=== PATIENT | female | born 1940 | race Caucasian/White ===

== ENCOUNTER 2019-11-12 09:53 | Outpatient (CLI) | payer MEDICARE, OTHER, SELFPAY ==
--- NOTE | ~2019-11-12 | XR_ITS ---
EXAMINATION: XR chest 2V DATE: 11/12/2019 11:21 INDICATION: Hypertension. Preop. TECHNIQUE: Frontal and lateral views of the chest were obtained. COMPARISON: Chest 2 views 03/06/2015 FINDINGS: A calcified left lung nodule is consistent with old granulomatous disease. No pneumonia, pl eural effusion, or pneumothorax. The heart size is normal. IMPRESSION: 1. No acute cardiopulmonary disease. Reviewed, dictated and finalized at location A. P MATERIALS BUYER
--- NOTE | 2019-11-12 10:49 | ECG_ITS ---
Measurements Intervals [place] Rate: 75 P: 44 ND: 196 QRS: -11 QRSD: 85 T: 21 QT: 369 QTc: 412 Interpretive Statements SINUS RHYTHM LOW QRS VOLTAGE IN PRECORDIAL LEADS BORDERLINE T WAVE ABNORMALITY- ANTERIOR LEADS BASELINE ARTIFACT- II, III, AVF BORDERLINE ECG Electronically Signed On 11-12-2019 13:49:30 RESIDENTIAL ASSISTANT by Abiodun Tim D.O.
[2019-11-12 11:15] LABS: Basophils Percent Auto 0.4 % (0.2-1.2); Eosinophils Absolute Auto 0.2 K/mm3 (0-0.3); Eosinophils Percent Auto 3.5 % (0-4.4); Hematocrit 42.5 % (37.0-47.0); Hemoglobin 13.5 g/dL (12.0-15.0); Immature Granulocyte Absolute 0.02 K/mm3 (0.00-0.031); Immature Granulocyte Percent A 0.3 % (0-0.5); Lymphocytes Absolute Auto 1.63 K/mm3 (0.9-3.2); Lymphocytes Percent Auto 23.9 % (18.3-44.2); Mean Corpuscular HGB Conc 31.8 g/dl (32-36); Mean Corpuscular Volume 94.4 fl (80-100); Mean Platelet Volume 9.6 fl (7.4-10.4); Monocytes Absolute Auto 0.6 K/mm3 (0.1-0.6); Monocytes Percent Auto 8.8 % (2.6-8.5); Neutrophils Absolute Auto 4.3 K/mm3 (1.3-6.7); Neutrophils Percent Auto 63.1 % (45.5-73.1); Platelet Count Result 270 k/mm3 (150-375); Red Cell Distribution Width 13.7 % (11.5-14.5); White Blood Count 6.8 K/mm3 (4.5-10.0)
[2019-11-12 11:28] LABS: Albumin Level 4.2 g/dL (3.5-5.1); Blood Urea Nitrogen 28 mg/dL (7-17); Calcium 9.8 mg/dL (8.4-10.2); Carbon Dioxide 30 mmol/L (22-30); Chloride 98 mmol/L (98-107); Estimated Glomerular Filt Rate 48; Glucose 100 mg/dL (65-105); Potassium 4.7 mmol/L (3.4-5.0); Sodium 142 mmol/L (137-145)
[2019-11-12 11:31] LABS: Hemoglobin A1C 6.4 % (<5.7)
[2019-11-12 11:32] LABS: Urine Cotinine NEGATIVE
== END 2019-11-12 09:54 | disposition home or self-care (01) ==
LOC: ANHSURGERY 09:56
PROVIDERS: PCP Family Medicine; Visit Provider Orthopaedic Surgery
DX: Z01.818 Encounter for other preprocedural examination (principal); M17.10 Unilateral primary osteoarthritis, unspecified knee; I10 Essential (primary) hypertension; E78.5 Hyperlipidemia, unspecified; E74.39 Other disorders of intestinal carbohydrate absorption
CPT/HCPCS: 36415; 71046; 80048; 80307; 82040; 83036; 85025; 87070; 87147; 87186; 93005

== ENCOUNTER 2019-11-22 08:24 | Outpatient (CLI) | payer MEDICARE, OTHER, SELFPAY ==
--- NOTE | ~2019-11-22 | NM_ITS ---
EXAMINATION: NM taras stress w perfusion DATE: 11/22/2019 12:14 INDICATION: Dyspnea on exertion. TECHNIQUE: Rest images were obtained following intravenous administration of 11 mCi Tc99m tetrofosmin (Myoview). The patient was infused intravenously with Lexiscan (regadenoson). Then, 33 mCi Tc99m tet rofosmin (Myoview) was administered intravenously, and stress images were obtained. Data was reconstr ucted into short axis and horizontal and vertical long axis SPECT images. Gated SPECT images were als o obtained. COMPARISON: None. FINDINGS: There is a small, mild, fixed perfusion defect involving mid inferior segment of left ventr icle, consistent with infarct. No reversible component to suggest ischemia. There is no segmental wa ll motion abnormality. Left ventricular ejection fraction measures >70%. IMPRESSION: 1. 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 2. Normal left ventricular ejection fraction measuring >70%. Reviewed, dictated and finalized at location A. AVER JEWELRY
--- NOTE | 2019-11-22 08:35 | ECHO_ITS ---
Patient Info Name: Temitope Pitts Age: 79 years : 1940 Gender: Female Ht: 69 in Wt: 244 lbs BSA: 2.36 m2 HR: 84 bpm BP: 154 / 84 mmHg Heart Rhythm: Sinus Rhythm Technical Quality: Fair Exam Date: 11/22/2019 8:52 AM Exam Location: [facility] Pulmonary Patient Status: Outpatient Admit Date: 11/22/2019 Staff Ordering Physician: Abiodun Tim DO Felt Hanger: Rosales Donaldson RDCS Attending Provider: Abiodun Tim DO Referring Physician: Glenroy CABRAL; Exam Type: CA echo doppler color flow Study Info Indications R06.09 - Other forms of dyspnea Complete two-dimensional, color flow and Doppler transthoracic echocardiogram is performed. History/Risk Factors Dyspnea, pre-op clearance. Summary 1. Left ventricular chamber dimension is normal. 2. Left ventricular systolic function is normal, estimated at 60-65%. 3. There is mildly increased left ventricular wall thickness. 4. The left ventricular diastolic function is grade I diastolic dysfunction. 5. E/e' 10 is mildly elevated. 6. Left atrial chamber dimension is mildly enlarged. 7. There is mild aortic valve sclerosis. Left Ventricle E/e' 10 is mildly elevated. Left ventricular chamber dimension is normal. Left ventricular systolic function is normal, estimated at 60-65%. There is mildly increased left ventricular wall thickness. The left ventricular diastolic function is grade I diastolic dysfunction. Right Ventricle Right ventricular chamber dimension is normal. Right ventricular systolic function is normal. Left Atria Left atrial chamber dimension is mildly enlarged. Right Atria Right atrial chamber dimension is normal. Aortic Valve Cannot determine number of aortic valve leaflets. The aortic valve is not well visualized. There is mild aortic valve sclerosis. There is no aortic valve stenosis. There is no aortic valve regurgitation. Pulmonic Valve There is no pulmonic regurgitation. Mitral Valve There is no mitral valve stenosis. There is no mitral valve regurgitation. Tricuspid Valve There is no tricuspid valve regurgitation. Pericardium/Pleural There is no pericardial effusion. Inferior Vena Cava Normal inferior vena cava with >50% collapse upon inspiration consistent with normal right atrial pressure, 5 mmHg. Aorta The aortic root size at the sinus of Valsalva is normal. Left Ventricular Outflow Tract Name Value Normal LVOT 2D LVOT Diameter 1.8 cm LVOT Doppler LVOT Peak Gradient 4 mmHg LVOT Mean Gradient 2 mmHg LVOT VTI 21 cm LVOT VTI/AV VTI Ratio 0.8 LVOT Stroke Volume 54 ml LVOT CO 3.8 l/min LVOT CI 1.6 l/min/m2 Mitral Valve Name Value Normal MV Doppler
--- NOTE | 2019-11-22 08:35 | EST_ITS ---
Patient Info Name: Temitope Pitts Age: 79 years : 1940 Gender: Female Ht: 69 in Wt: 244 lbs BSA: 2.36 m2 Exam Date: 11/22/2019 10:46 AM Exam Location: [facility] Stress Patient Status: Outpatient Admit Date: 11/22/2019 Staff Ordering Physician: Abiodun Tim DO Attending Provider: Abiodun Tim DO Exercise Technologist: Jenny Phillips RDCS Exercise Physician: Abiodun Tim DO Exam Type: CA stress taras w NM Study Info Indications R06.09 - Other forms of dyspnea A regadenoson stress test was performed. Summary 1. 1. Negative Lexiscan stress test for ischemic ST changes by ECG criteria. 2. 2. Hypotensive response to lexiscan. 3. 3. Nuclear scan to follow and will be reported separately. Please correlate with it. 4. 4. Patient informed of the above results. Protocol: Lexiscan Stress ECG Details Stage: REST Duration (min): 7 min : 34 sec HR (bpm): 69 SBP (mmHg): 123 DBP (mmHg): 57 Stage: REST Duration (min): 15 min : 9 sec HR (bpm): 66 SBP (mmHg): 123 DBP (mmHg): 57 Stage: STAGE 1 Duration (min): 0 min : 59 sec HR (bpm): 74 SBP (mmHg): 128 DBP (mmHg): 57 Stage: RECOVERY Duration (min): 1 min : 0 sec HR (bpm): 84 SBP (mmHg): 128 DBP (mmHg): 57 Stage: RECOVERY Duration (min): 2 min : 0 sec HR (bpm): 83 SBP (mmHg): 89 DBP (mmHg): 36 Stage: RECOVERY Duration (min): 3 min : 0 sec HR (bpm): 82 SBP (mmHg): 84 DBP (mmHg): 36 Stage: RECOVERY Duration (min): 4 min : 0 sec HR (bpm): 83 SBP (mmHg): 84 DBP (mmHg): 36 Stage: RECOVERY Duration (min): 5 min : 0 sec HR (bpm): 82 SBP (mmHg): 84 DBP (mmHg): 36 Stage: RECOVERY Duration (min): 6 min : 0 sec HR (bpm): 82 SBP (mmHg): 96 DBP (mmHg): 41 Stage: RECOVERY Duration (min): 6 min : 47 sec HR (bpm): 80 SBP (mmHg): 106 DBP (mmHg): 46 Rest HR: 66 bpm Peak HR: 84 bpm Rest Sys BP: 123 mmHg Peak Sys BP: 128 mmHg Max Pred HR: 139 bpm % Max Pred HR: 60 % Target HR: 118 bpm Max RPP: 10,752 bpm*mmHg BP Response: Patient exhibited a hypotensive response with stress Termination Reason: Completed protocol Cardiac Symptoms: Shortness of breath, Headache, dizziness Total Time: 1 min : 0 sec Rest Guerra BP: 57 mmHg Peak Guerra BP: 57 mmHg Total Dose: 0.4 mg Resting ECG Sinus rhythm. Stress ECG No ST changes. BP vikki to 85/40 mmHg with Lexiscan. Arrhythmias None. Report Signatures
== END 2019-11-22 08:25 | disposition home or self-care (01) ==
PROVIDERS: PCP Family Medicine; Visit Provider Internal Medicine Cardiovascular Disease
DX: R06.09 Other forms of dyspnea (principal); I21.9 Acute myocardial infarction, unspecified
CPT/HCPCS: 78452; 93017; 93306; A9502; J2785

== ENCOUNTER 2019-12-03 00:45 | Day surgery (SDC) | payer MEDICARE, OTHER, SELFPAY ==
[2019-11-12 10:43] VITALS: BMI 35.0
[2019-11-12 11:53] VITALS: BP 117/63; PULSE 83; RESP 18; TEMP 36.6; O2SAT 94
--- NOTE | 2019-11-30 11:06 | HP_ITS ---
DATE OF SERVICE: 12/03/2019 ADMIT DIAGNOSIS: Degenerative joint disease, left knee. HISTORY: The patient is an 79-year-old female patient of Dr. Brown who presents today for left total knee arthroplasty. She has been having pain in both of her knees, left greater than right for several years. She has had viscosupplementation injections as well as cortisone injections in the past, all with minimal help. She has severe arthritis in both of her knees and feels at this point she would rather proceed with total knee arthroplasty rather than continue any nonsurgical treatment. 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 She has had tubal ligation in the past. CURRENT MEDICATIONS: Takes 1. Alprazolam 0.5 mg once a day. 2. Full-strength aspirin daily. 3. Vitamin D daily. 4. Omeprazole 20 mg daily. 5. Paxil 20 mg daily. 6. Rosuvastatin 10 mg daily. 7. Trimeton. 8. Hydrochlorothiazide 37.5/25 daily. ALLERGIES: SHE IS ALLERGIC TO SULFA DRUGS, PARTICULARLY SULFONAMIDE ANTIBIOTICS. SOCIAL HISTORY: She is a nonsmoker. FAMILY HISTORY: Noncontributory. PHYSICAL EXAMINATION: VITAL SIGNS: The patient is 5 feet 8 inches and 249 pounds. Her BMI is 37. Other vital signs per nursing on the morning of surgery. HEENT: Grossly normal. LUNGS: Clear bilaterally. HEART: Regular rate and rhythm. She walks with a mild limp. There is some mild swelling in the left calf and ankle. Left knee range of motion is from 8 to 120. There is no effusion. Normal stability, both AP, medial, and lateral. Moderately severe tenderness over the medial joint line. Has numbness in both feet to light touch testing with a history of neuropathy in both feet. SKIN: Skin is all otherwise normal. 2+ dorsalis pedis and posterior tibial pulse. Full range of motion of the left hip without discomfort. IMAGING DATA: X-rays demonstrate severe medial compartment arthritis. She has chondrocalcinosis in the lateral compartment, which is fairly prominent. She has [id number] varus deformity in the knee as well. IMPRESSION: The patient has severe arthritis of the medial compartment with significant pain in the left knee. She would like to proceed with total knee arthroplasty. Surgical procedure as well as the risks and complications were discussed. All questions were answered and we will proceed. The patient will see Dr. Brown for presurgical clearance. She will maintain her baby aspirin through the time of surgery due to her history of the ocular stroke. The patient has seen Dr. Tim, the rn pain management. She has had a stress test, which showed her ejection fraction at greater than 70%. She has a small fixed defect in the mid inferior segment of the left ventricle consistent with an old infarct. Her nasal swab did grow oxacillin-sensitive Staph aureus. She has been decolonizing as of 11/23, hemoglobin 13.5, platelets are 270. Creatinine is elevated to 1.10. GFR is 48. Rest of her Chem panel is within normal limits. D I MT: Padma
[2019-12-03] VITALS (12 sets, daily range): BP systolic 113–143; BP diastolic 54–81; PULSE 84–106; RESP 12–19; TEMP 36.5–37; O2SAT 93–99
--- NOTE | ~2019-12-03 | XR_ITS ---
EXAMINATION: XR knee LT 2V DATE: 12/03/2019 11:20 INDICATION: Left knee arthroplasty. Postop. TECHNIQUE: 2 views of left knee were obtained. COMPARISON: None. FINDINGS: There is a total left knee arthroplasty with patellar resurfacing in near-anatomic alignmen t. No fracture. There is gas in the knee joint and soft tissues, consistent with recent surgery. IMPRESSION: 1. Total left knee arthroplasty in near-anatomic alignment. Reviewed, dictated and finalized at location A. /HOSTESS HEAD
--- NOTE | 2019-12-03 06:45 | WPDANESEPPF ---
Anes - Initial Pre Proc Eval Procedure: Operation Date: 12/03/19 07:30 Proposed Procedures p Left Total Knee Arthroplasty - Kenny Wilkes MD Date/Time: 12/03/19 06:45 Surgeon: Kenny Wilkes MD Pre Op Diagnosis: OA Left Knee Patient Data Age: 79 Gender: F Height: 1.78 m Weight: 110.4 kg Last Vital Signs Temp 36.6 C 11/12/19 11:53 Pulse 83 11/12/19 11:53 Resp 18 11/12/19 11:53 BP 117/63 11/12/19 11:53 Pulse Ox 94 11/12/19 11:53 Allergies Allergy/AdvReac Type Severity Reaction Status Date / Time atorvastatin Allergy Unknown muscle Verified 12/03/19 06:42 aches fenofibrate Allergy Unknown muscle Verified 12/03/19 06:42 aches fluvastatin Allergy Unknown muscle Verified 12/03/19 06:42 aches niacin Allergy Unknown flushing Verified 12/03/19 06:42 simvastatin Allergy Unknown muscle Verified 12/03/19 06:42 aches Sulfa (Sulfonamide Allergy Unknown Skin Verified 12/03/19 06:42 Antibiotics) Reaction Home Medications Medication Instructions Recorded Confirmed Type alprazolam [Xanax] 0.5 mg PO HS PRN 11/12/19 11/14/19 History aspirin 325 mg PO DAILY 11/12/19 11/14/19 History biotin [Ronaldo Biotin] 10,000 mcg PO 11/12/19 11/14/19 History cholecalciferol (vitamin D3) 2,000 unit PO DAILY 11/12/19 11/14/19 History coQ10 (ubiquinol) 200 mg PO DAILY 11/12/19 11/14/19 History cyanocobalamin (vitamin B-12) 1,000 mcg PO DAILY 11/12/19 11/14/19 History levothyroxine 125 mcg PO DAILY 11/12/19 11/14/19 History multivitamin [Multiple Vitamins] 1 tablet PO DAILY 11/12/19 11/14/19 History omeprazole 20 mg PO DAILY 11/12/19 11/14/19 History paroxetine HCl 20 mg PO QAM 11/12/19 11/14/19 History polyethylene glycol 3350 17 g PO DAILY 11/12/19 11/14/19 History rosuvastatin 10 mg PO DAILY 11/12/19 11/14/19 History triamterene-hydrochlorothiazid 0.5 tablet PO QAM 11/12/19 11/14/19 History [Maxzide-25mg] ECG: Date of Service: 11/12/19 Procedure(s): CA 12 lead EKG Accession Number(s): [id number] cc: ~ Measurements Intervals [place] Rate: 75 P: 44 SD: 196 QRS: -11 QRSD: 85 T: 21 QT: 369 QTc: 412 Interpretive Statements SINUS RHYTHM LOW QRS VOLTAGE IN PRECORDIAL LEADS BORDERLINE T WAVE ABNORMALITY- ANTERIOR LEADS BASELINE ARTIFACT- II, III, AVF BORDERLINE ECG Electronically Signed On 11-12-2019 13:49:30 COMPUTER TRAINER by Abiodun Tim D.O. Dictated By: Abiodun Tim DO 11/12/19 1120 Patient hx anesthesia problems: none Family hx anesthesia problems: none PMFSH Past Medical History Medical History (Updated 12/03/19 @ 06:47 by Livan Abbott MD) Arthritis Glucose intolerance Hyperlipidemia Hypertension Obesity JADIEL on CPAP Thyroid disease Surgical History Surgical History History of surgery on wrist History of tubal ligation Social History Social History Smoking status: Former smoker Smoking end date: 10/03/99 Alcohol intake: current Gender identity (if verbalized by the patient): Female Anes - Eval Final PreProcedure Day of Procedure 12/03/19 06:45 Patient weight: obese Heart: regular rate and rhythm Lungs: clear to auscultation and normal air movement Airway: Mallampati scale class II Neurological: alert and oriented Last oral intake: >/= 8 hours ASA classification: III Emergent: no Anesthetic plan: proceed Anesthesia type and monitoring: general LMA Informed Consent: The patient's anesthetic plan and its attendant risks and benefits were discussed with the patient/family/POA. Questions were solicited and answers provided to the satisfaction of the
[2019-12-03] MEDS: LACTATED RINGERS 1,000 ML 30 ML IV CONT ×2 (06:55→11:18)
[2019-12-03] MEDS: IBUPROFEN IV 800 MG/200 ML 800 MG/200 ML BAG 400 MG IVPB (07:02)
--- NOTE | 2019-12-03 07:25 | WPDHPUPDATE1 ---
History and Physical Update Update Date/Time: 12/03/19 07:25 History and Physical has been reviewed, including an updated exam of the patient. There are NO changes in the patient's condition. Risks, benefits, and alternatives have been discussed and questions answered. Patient agrees to proceed with procedure.
[2019-12-03] MEDS: ceFAZolin 2 GM/D5W 50 ML 2 GM/50 ML BAG IVPB (07:36)
[2019-12-03] MEDS: ceFAZolin SODIUM 1 GM VIAL 3 GM IRRIGATION (08:26)
--- NOTE | 2019-12-03 09:36 | SUR.OPER ---
bone cement used: 1 box refobacin bone cement 1x40, and 1biomet 1x40 box
--- NOTE | 2019-12-03 09:42 | SUR.OPER ---
informed dr. ESCOBEDO OF 90 MINUTE TOURNIQUET TIME
--- NOTE | 2019-12-03 09:53 | SUR.OPER ---
INFORMED DR. ESCOBEDO OF 100 MINUTE TOURNIQUET TIME
[2019-12-03] MEDS: ceFAZolin SODIUM 1 GM VIAL IV PUSH ×2 (10:23→10:38)
--- NOTE | 2019-12-03 10:51 | SUR.OPER ---
EBL:200CC
--- NOTE | 2019-12-03 11:02 | PM.PROC ---
Procedure Note - Detailed Date of procedure: 12/03/19 Pre-op diagnosis: OA Left Knee Osteoarthritis left knee, obesity Post-op diagnosis: same Procedure performed: Left total knee arthroplasty Description of procedure: Patient was brought to the operating room and general anesthesia was administered. the left knee was prepped draped usual fashion. She received 2 g of Ancef weight based vancomycin preoperatively and 1 g of tranexamic acid. There was extra difficulty with the procedure because of her BMI of 37.8. She is 5 foot 8-1/2 inches in height 111 kg. Limb was exsanguinated and tourniquet elevated to 300 mm of mercury. She had about a 7-10 flexion degree contracture under anesthesia. a 8 inch longitudinal incision was made. Vastus medialis splitting approach utilized. Infrapatellar and suprapatellar fat pads were excised a course of synovectomy carried out. The patella measured 24 mm in thickness and was cut to 16 mm. Protector cap applied. A guide eric was inserted down the femoral canal after aspiration canal contents using the 5? valgus cutting bushing 11 mm of bone removed the distal femur. This removed equal amounts medially and laterally. next the tibial plateau was cut. We attempted to make a skim cut but we were still little bit too tight in flexion and an additional 2 mm of bone removed the tibial plateau. Meniscal remnants were excised and the PCL recessed the flexion gaps measured I 10 mm medially and 11 mm laterally. Whitesides line trans epicondylar axis were drawn on the femur. The sizing guide was set to 3? of external rotation which matched Whitesides line and the trans epicondylar axis. posterior referencing pin holes were placed and the femur was cut to a size 70 vanguard. This caused the minimal notching of the lateral ridge of the anterior femoral cortex but was a little bit too wide still. The tibia was sized to an 75 placed at the proper rotation referenced off the medial 3rd of the tibial tubercle the foot in the anterior cortex of the tibial plateau and this was punched and we trialed with the 10 insert. this demonstrated excessive tightness laterally at 90? with no applied and 3 mm of gapping medially. I did not feel this would be acceptable. The knee came out to full extension easily at this point with 2 mm medial and lateral opening we had good balance there. As the cut femur size was still a bit wide for her I elected to slide the 67.5 cutting block femur removing the lateral fixation peg to allow the femoral component to be applied with a little bit less external rotation such that it would remove 2 mm of bone from the posterior aspect of the lateral femoral condyle be flush with the posterior aspect of the medial femoral condyle and removed 2 mm of bone from the medial aspect of the anterior femoral cut be flush with the lateral aspect of the anterior femoral cut and the and the cutting block was additionally pinned with the threaded pins and the femur cut again and the 67.5 fit line to line medial collateral on and we had an excellent fit anterior to posterior as well. we trialed with the 12 mm insert and found that that we were just a little bit loose at 90? of flexion with excellent medial lateral balance now. Lateral side opened the mm medial side 2 mm. The lacked wire 2? of full extent did have a bit of plate medial-lateral. I will I trialed the 13 insert which had excellent stability at 90? gravity flexion to 125 an lacked extension with no plate medially or laterally now. We removed the trial components reapplied the femoral component posterior femoral osteophyte removed. the pins for the distal femoral cutting block were reinserted and we removed an additional 1 mm of bone from the distal femur and the chamfer cuts revisited and on trialing again with a 13 insert the knee came out to full extension with a negative bounce 1 mm medial to mm lateral opening in full extension and appropriate stability at 90?. The patella w
--- NOTE | 2019-12-03 11:10 | SUR.OPER ---
URINE IN [place] RESERVOIR:200CC
[2019-12-03] MEDS: SODIUM CHLORIDE 0.9% IV 1,000 ML 125 ML IV CONT (13:11)
--- NOTE | 2019-12-03 13:20 | PC.NURSE ---
This patient, Temitope Pitts, was admitted to 3 [facility] Surg Room 329-01. Patient/family oriented to hospital policies and general routines including ID bracelet, bed and alarms, visiting hours, pain management, procedures, bathroom and other care routines, personal items, smoking policy, room service/diet, and visiting hours. Valuables list has been completed. Information on how to activate the Rapid Response Team has been discussed. Patient/Family are encouraged to report perceived risks to care and to ask questions if they do not understand what they are told or what they should do.
[2019-12-03] MEDS: ACETAMINOPHEN 500 MG TABLET 1000 MG PO ×2 (13:44→21:04)
[2019-12-03] MEDS: SENNA/DOCUSATE SODIUM TABLET 2 TAB PO (17:45)
--- NOTE | 2019-12-03 18:13 | PM.IMCN ---
Assessment and Plan Assessment and plan (1) History of total knee arthroplasty: Code(s): Z96.659 - Presence of unspecified artificial knee joint Status: Acute Assessment and Plan: Postop care per orthopedic physician. DVT prophylaxis per ortho. The patient is on Eliquis she has SCDs and TEDs on right and an Geo wrap on the left leg. Pain management per Ortho as well. (2) Anxiety: Code(s): F41.9 - Anxiety disorder, unspecified Status: Chronic Assessment and Plan: Xanax was continued. Continue with Paxil (3) Hypertension: Code(s): I10 - Essential (primary) hypertension Status: Chronic Assessment and Plan: Ortho continued with her triamterene. Please continue to monitor her renal function. Patient does seem somewhat dry today. (4) Glucose intolerance: Code(s): E74.39 - Other disorders of intestinal carbohydrate absorption Status: Acute (5) JADIEL on CPAP: Code(s): G47.33 - Obstructive sleep apnea (adult) (pediatric); Z99.89 - Dependence on other enabling machines and devices Status: Acute Assessment and Plan: I ordered a a titrating CPAP. (6) Hyperlipidemia: Code(s): E78.5 - Hyperlipidemia, unspecified Status: Acute Assessment and Plan: Continue with Crestor. (7) Hypothyroidism: Code(s): E03.9 - Hypothyroidism, unspecified Status: Chronic Assessment and Plan: Check thyroid level continue with levothyroxine. HPI Data of Consult Consult date: 12/03/19 Requesting Physician: Kenny Wilkes MD Primary Care Provider: Dejan Brown MD Consult Narrative Narrative: Temitope Pitts is a 79 year old female patient has had severe arthritis to both of her knees. She has had some gel injection to the left knee in the past. She has had difficulty ambulating. He has had severe pain she has dealt with this for several years. The patient stated that she did have a stress test prior to having surgery and that she passed although they thought there might of been something there she was able to go through with the surgery at this point. She is not having a of any other problems at this time. Patient is somewhat lethargic from the anesthesia at this point. The patient that she had to urinate for got she had a Meng catheter in. The patient has already been up and ambulated with walker and sat in the chair. She just feels very fatigued. No nausea vomiting. Dr. wilkes has consulted the hospitalist group for medical management. Patient is not having any complaints at this time. Please refer to the operative report and anesthesia report. Review of Systems Review of Systems: Narrative: The patient is still somewhat groggy from anesthesia. All systems reviewed & are unremarkable except as noted in HPI and below Constitutional: Constitutional: Reports as per HPI and Reports no additional constitutional complaints Eyes: Eyes: Reports as per HPI and Reports no additional eye complaints ENT: Reports system reviewed and no additional complaints, except as documented and Reports Normal hearing present Cardiovascular: Cardiovascular: Reports no additional cardiovascular complaints Respiratory: Respiratory: Reports no additional respiratory complaints and Reports no additional respiratory complaints Gastrointestinal: Gastrointestinal: Reports as per HPI and Reports no additional gastrointestinal complaints Musculoskeletal: Musculoskeletal: Reports no additional musculoskeletal complaints Integumentary/Breasts: Skin/Breast: Reports system reviewed and no additional complaints, except as docu and Reports as per HPI Neurologic: Reports system reviewed and no additional complaints, except as documented, Reports as per HPI and Reports Normal hearing present Psychiatric: Psychiatric: Reports no additional psychiatric complaints and Reports as per HPI Endocrine: Endocrine: Reports no additional endocrine complaints Elijah
[2019-12-03] MEDS: FAMOTIDINE 20 MG TABLET PO (21:04)
[2019-12-03] MEDS: APIXABAN 2.5 MG TABLET PO (21:04)
[2019-12-04] VITALS (9 sets, daily range): BP systolic 103–121; BP diastolic 45–60; PULSE 79–100; RESP 16–18; TEMP 36.7–37.1; O2SAT 93–96
[2019-12-04] MEDS: SODIUM CHLORIDE 0.9% IV 1,000 ML 125 ML IV CONT (00:19)
[2019-12-04] MEDS: ALPRAZOLAM 0.5 MG TABLET PO (00:40)
[2019-12-04] MEDS: ACETAMINOPHEN 500 MG TABLET 1000 MG PO ×3 (03:07→13:50)
[2019-12-04] MEDS: LEVOTHYROXINE SODIUM 125 MCG TABLET PO (05:09)
[2019-12-04 06:05] LABS: Basophils Percent Auto 0.1 % (0.2-1.2); Eosinophils Percent Auto 0.1 % (0-4.4); Hemoglobin 11.6 g/dL (12.0-15.0); Immature Granulocyte Absolute 0.06 K/mm3 (0.00-0.031); Immature Granulocyte Percent A 0.6 % (0-0.5); Lymphocytes Absolute Auto 1.09 K/mm3 (0.9-3.2); Lymphocytes Percent Auto 10.4 % (18.3-44.2); Mean Corpuscular HGB Conc 31.4 g/dl (32-36); Mean Corpuscular Hemoglobin 29.7 pg (26-34); Mean Corpuscular Volume 94.9 fl (80-100); Mean Platelet Volume 9.5 fl (7.4-10.4); Monocytes Absolute Auto 1.1 K/mm3 (0.1-0.6); Monocytes Percent Auto 10.1 % (2.6-8.5); Neutrophils Absolute Auto 8.3 K/mm3 (1.3-6.7); Neutrophils Percent Auto 78.7 % (45.5-73.1); Platelet Count Result 256 k/mm3 (150-375); Red Cell Distribution Width 13.8 % (11.5-14.5); White Blood Count 10.5 K/mm3 (4.5-10.0)
--- NOTE | 2019-12-04 06:28 | PM.PNORT ---
Progress Note: A&P Additional Plan POD 1 alert avss pt was having headache last night none this am. no nausea overnight, wd-dry NVI, pt has been OOB last night,plan to have PT work with pt today and plan to send home this afternoon Subjective Subjective Date/Time Seen: 12/04/19 06:28 Objective Data Vital Signs Vital Signs: Vital Signs - 24 hr 12/03/19 07:24 12/03/19 11:18 12/03/19 11:30 Temperature 36.6 C 36.8 C Pulse Rate 84 94 92 Respiratory Rate 16 13 18 Blood Pressure 143/65 H 119/69 113/55 L Pulse Oximetry 95 95 99 12/03/19 11:45 12/03/19 12:00 12/03/19 12:15 Temperature Pulse Rate 91 88 92 Respiratory Rate 12 12 16 Blood Pressure 132/54 L 120/55 L 133/66 Pulse Oximetry 93 94 95 12/03/19 12:30 12/03/19 12:45 12/03/19 13:15 Temperature 36.6 C 36.6 C 36.5 C Pulse Rate 91 92 96 Respiratory Rate 16 16 19 Blood Pressure 140/64 114/81 122/58 L Pulse Oximetry 94 96 95 12/03/19 14:15 12/03/19 22:00 12/03/19 23:30 Temperature 37.0 C 36.5 C Pulse Rate 106 H 89 92 Respiratory Rate 18 16 Blood Pressure 124/65 117/57 L Pulse Oximetry 93 94 94 12/04/19 02:00 12/04/19 04:18 12/04/19 05:58 Temperature 37.0 C 37.1 C Pulse Rate 91 89 87 Respiratory Rate 16 18 Blood Pressure 121/60 111/45 L Pulse Oximetry 94 93 95 Intake/Output Intake/Output: Intake & Output 12/01/19 12/02/19 12/03/19 12/04/19 23:59 23:59 23:59 23:59 Intake Total 1999 1050 Output Total 450 2700 Balance 1550 -1650 Meds/Results Medications: Active Medications Generic Name Dose Route Start Last Admin Trade Name Freq PRN Reason Stop Dose Admin Acetaminophen 1,000 mg 12/03/19 14:00 12/04/19 03:07 Tylenol Tablet PO 1,000 mg Q6H GERMAINE Administration Alprazolam 0.5 mg 12/03/19 12:21 12/04/19 00:40 Xanax PO 0.5 mg HS PRN Administration Insomnia Apixaban 2.5 mg 12/03/19 21:00 12/03/19 21:04 Eliquis PO 12/15/19 09:01 2.5 mg Q12HR GERMAINE Administration Aspirin 81 mg 12/04/19 08:00 Aspirin Chewable PO DAILY@0800 [facility] Cephalexin HCl 500 mg 12/04/19 13:00 Keflex Capsule PO QID GERMAINE Diphenhydramine HCl 25 mg 12/03/19 12:21 Benadryl Inj IV PUSH Q6H PRN Itching Famotidine 20 mg 12/03/19 21:00 12/03/19 21:04 Pepcid PO 20 mg Q12HR GERMAINE Administration Sodium Chloride 1,000 mls @ 125 mls/hr 12/03/19 12:21 12/04/19 00:19 Normal Saline Iv IV CONT 125 mls/hr .Q8H GERMAINE Administration Vancomycin HCl 1,000 mg in 250 mls @ 250 mls/hr 12/03/19 19:00 12/04/19 06:10 Vancomycin 1,000 Mg/D5w 250 Ml IVPB 12/04/19 07:59 125 mls/hr Q12H GERMAINE Administration Cefazolin Sodium 1 gm in 50 mls @ 100 mls/hr 12/03/19 16:00 12/04/19 01:05 Ancef 1 Gm/D5w 50 Ml Pm IVPB 12/04/19 08:29 Infused Q8H GERMAINE Infusion Levothyroxine Sodium 125 mcg 12/04/19 06:30 12/04/19 05:09 Synthroid PO 125 mcg DAILY@0630 GERMAINE Administration Morphine Sulfate 2 mg 12/03/19 12:21 Morphine Sulfate Inj IV PUSH Q2H PRN Breakthrough pain rated 4-6 Naloxone HCl 0.1 mg 12/03/19 12:21 Narcan IV PUSH Q2M PRN Opiate Reversal Ondansetron HCl 4 mg 12/03/19 12:21 Zofran Inj IV PUSH Q4H PRN Nausea And Vomiting Oxycodone HCl 5 mg 12/03/19 12:21 Roxicodone Ir Tablet PO Q4H PRN Pain Rated 4-6 Oxycodone HCl 5 mg 12/03/19 13:00 12/04/19 05:08 Roxicodone Ir Tablet PO 5 mg Q4HR GERMAINE Administration Paroxetine HCl 20 mg 12/04/19 09:00 Paxil PO QAM [facility] Polyethylene Glycol 17 gm 12/04/19 09:00 Miralax PO DAILY [facility] Rosuvastatin Calcium 10 mg 12/04/19 09:00 Crestor PO DAILY GERMAINE Senna/Docusate Sodium 2 tab 12/03/19 17:00 12/03/19 17:45 Senokot S Tablet PO 2 tab BID GERMAINE Administration Triamterene/HCTZ 1 tab 12/04/19 09:00 Maxzide-25 1/2 Tab PO QAM [facility] Radiology Results: ITS Impressions Knee X-Ray 12/03/19 11:21 IMPRE
[2019-12-04 06:32] LABS: Blood Urea Nitrogen 14 mg/dL (7-17); Calcium 8.7 mg/dL (8.4-10.2); Carbon Dioxide 31 mmol/L (22-30); Chloride 100 mmol/L (98-107); Estimated CRCL calculation 73 ml/min; Estimated Glomerular Filt Rate > 60; Glucose 118 mg/dL (65-105); Magnesium 2.1 mg/dL (1.6-2.3); Potassium 3.7 mmol/L (3.4-5.0); Sodium 141 mmol/L (137-145)
--- NOTE | 2019-12-04 07:39 | WPDANESPN ---
Anes - Prog Note Post-Op Date/Time: 12/04/19 07:39 Cardiovascular status: normal Respiratory status: normal Airway patency: baseline Mental status: baseline Post-Op hydration status: normal Vital Signs: Last Vital Signs Temp 37.1 C 12/04/19 05:58 Pulse 87 12/04/19 05:58 Resp 18 12/04/19 05:58 BP 111/45 L 12/04/19 05:58 Pulse Ox 95 12/04/19 05:58 I/O: Intake & Output 12/03/19 12/03/19 12/04/19 15:59 23:59 07:59 Intake Total 50 1950 1050 Output Total 450 3400 Balance 50 1500 -2350 Laboratory Tests 12/04/19 05:49 12/04/19 05:49 12/03/19 12/04/19 12/04/19 07:00 05:49 05:49 WBC 10.5 H RBC 3.90 L Hgb 11.6 L Hct 37.0 MCV 94.9 MCH 29.7 MCHC 31.4 L RDW 13.8 Plt Count 256 MPV 9.5 Immature Gran % (Auto) 0.6 H Neut % (Auto) 78.7 H Lymph % (Auto) 10.4 L Mason % (Auto) 10.1 H Eos % (Auto) 0.1 Baso % (Auto) 0.1 L Lymph # (Auto) 1.09 Mason # (Auto) 1.1 H Eos # (Auto) 0.0 Baso # (Auto) 0.0 Abs Immat Gran (auto) 0.06 H Absolute Neuts (auto) 8.3 H Absolute Nucleated RBC 0.0 Nucleated RBC % 0.0 Sodium Potassium Chloride Carbon Dioxide BUN Creatinine Estim Creat Clear Calc Estimated GFR Glucose Calcium Magnesium TSH (Reflex) Pending Blood Type A Positive Antibody Screen Negative 12/04/19 05:49 WBC RBC Hgb Hct MCV MCH MCHC RDW Plt Count MPV Immature Gran % (Auto) Neut % (Auto) Lymph % (Auto) Mason % (Auto) Eos % (Auto) Baso % (Auto) Lymph # (Auto) Mason # (Auto) Eos # (Auto) Baso # (Auto) Abs Immat Gran (auto) Absolute Neuts (auto) Absolute Nucleated RBC Nucleated RBC % Sodium 141 Potassium 3.7 Chloride 100 Carbon Dioxide 31 H BUN 14 D Creatinine 0.70 Estim Creat Clear Calc 73 Estimated GFR > 60 Glucose 118 H Calcium 8.7 Magnesium 2.1 TSH (Reflex) Blood Type Antibody Screen Post-procedural complaints: none Patient Feedback: Patient satisfied with anesthetic care.
--- NOTE | 2019-12-04 08:02 | DS_ITS ---
DATE OF DISCHARGE: 12/04/2019 DIAGNOSIS: Degenerative joint disease, left knee. HOSPITAL COURSE: The patient is an 79-year-old female who underwent left total knee arthroplasty by Dr. Wilkes on 12/03/2019, underwent procedure without any complications. Postoperatively, she has been afebrile. Vital signs were stable. Neurovascularly intact. Her wound is dry and healed. She has a Mepilex dressing over the top of it. She is weightbearing as tolerated. She is on Eliquis for 2 weeks for DVT prophylaxis followed by aspirin twice a day. 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 She had a headache on the day of surgery, this quickly dissipated to the point now where she is asymptomatic with regard to that. Her pain is well controlled with scheduled Tylenol as well as oxycodone, now reporting Celebrex on her due to her history of sulfa allergies and also she has a history of a decreased GFR on her preop labs. She will be going home on 12/03, she will go home on a regular diet. Weightbearing as tolerated. She is on a week of Keflex postoperatively as well. The patient has outpatient therapy starting in 2 days at our facility in [place]. On postop day 1, hemoglobin was 11.6, platelets were 256. Chem panel was normal. The patient was advised any questions or concerns, she should call the office. Otherwise, we will see at her appointed date. She was advised to keep the leg elevated at home to prevent swelling, but also do her exercises on a regular basis. Nakia I MT: Padma
[2019-12-04] MEDS: ROSUVASTATIN 10 MG TABLET PO (09:41)
[2019-12-04] MEDS: polyethylene glycoL 3350 17 GM POWD.PACK PO (09:41)
[2019-12-04] MEDS: SENNA/DOCUSATE SODIUM TABLET 2 TAB PO ×2 (09:42→17:34)
[2019-12-04] MEDS: TRIAMTERENE/HCTZ 18.75/12.5 MG TABLET 1 TAB PO (09:42)
[2019-12-04] MEDS: APIXABAN 2.5 MG TABLET PO (09:42)
[2019-12-04] MEDS: PAROXETINE 20 MG TABLET PO (09:42)
[2019-12-04] MEDS: FAMOTIDINE 20 MG TABLET PO (09:43)
--- NOTE | 2019-12-04 10:52 | PM.IMPN ---
Progress Note: A&P Assessment and Plan (1) History of total knee arthroplasty: Code(s): Z96.659 - Presence of unspecified artificial knee joint Status: Acute Assessment and Plan: POD #1- patient is feeling well, pain has been controlled intermittently. Currently elevated secondary to physicial therapy. Plans for discharge this afternoon per Dr. Wilkes to return home and have outpatient PT/OT. The patient is stable for discharge from a medical standpoint. Postop care per orthopedic physician. DVT prophylaxis per ortho. The patient is on Eliquis for DVT prophylaxis at this time. Pain management per Ortho as well. (2) Anxiety: Code(s): F41.9 - Anxiety disorder, unspecified Status: Chronic Assessment and Plan: Home medications of Xanax and Paxil were continued. (3) Hypertension: Code(s): I10 - Essential (primary) hypertension Status: Chronic Assessment and Plan: Ortho continued with her triamterene. Renal function stable today. Continue on home medications, drink plenty of fluids and monitor blood pressure at home as needed. (4) Glucose intolerance: Code(s): E74.39 - Other disorders of intestinal carbohydrate absorption Status: Acute Assessment and Plan: Serum glucose was 118 this morning. Slightly elevated. Will have her watch her diet and follow up with PCP. (5) JADIEL on CPAP: Code(s): G47.33 - Obstructive sleep apnea (adult) (pediatric); Z99.89 - Dependence on other enabling machines and devices Status: Acute Assessment and Plan: Continue CPAP at home. (6) Hyperlipidemia: Code(s): E78.5 - Hyperlipidemia, unspecified Status: Acute Assessment and Plan: Continue with Crestor. (7) Hypothyroidism: Code(s): E03.9 - Hypothyroidism, unspecified Status: Chronic Assessment and Plan: Continue levothyroxine. TSH was normal. Time Spent With Patient Time with patient: 25 - 35 minutes Subjective Date/time seen: 12/04/19 10:52 Interval history: Date of Service 12/04/2019: The patient is feeling well today, POD #1. She reported increased pain this morning when she woke up but had some improvement with oral pain medications. She just returned from PT and she reports increase pain at this time. She did well though. She has been eating and drinking without any issues. She denies any chest pain, palpitations, shortness of breath, fever, chills, nausea, vomiting, diarrhea, constipation, or any other symptoms at this time. Review of Systems Review of Systems: All systems reviewed & are unremarkable except as noted in HPI and below Exam Narrative: Exam Narrative: General: 79-year-old woman laying flat in bed with her left knee elevated. Appears comfortable. In no acute distress. Skin: No jaundice or cyanosis. Good skin turgor. Neck: Full range of motion. Supple. Respiratory: Lungs are clear to auscultation bilaterally. No bony chest wall tenderness. Cardiovascular: The heart has a regular rate and rhythm without murmur. Lower extremities: Right knee with ileana wrap and ice pack in place. Unable to fully examine, will defer to orthopedic for post op exam. Compression stocking in place to right lower extremity. No lower extremity edema. Distal pulses are easily palpated. No calf tenderness to palpation. Gastrointestinal: The abdomen is soft, nontender and nondistended with active bowel sounds. Psychiatric: Lucid and oriented. Memory intact. Neurologic: No focal deficits. Speech is clear. No facial drooping. Objecti
[2019-12-04] MEDS: ASPIRIN 81 MG CHEWABLE TABLET PO (11:03)
[2019-12-04] MEDS: CEPHALEXIN 500 MG CAPSULE PO ×2 (13:50→17:35)
[2019-12-04] MEDS: DACRIOSE EYE IRRIGATION 118 ML BOTTLE 10 ML LEFT EYE (16:00)
[2019-12-04] MEDS: FLUORESCEIN SOD 1 MG/STRIP RIGHT EYE (17:34)
[2019-12-04] MEDS: TETRACAINE HCL 0.5% OPHTH SOLN 4 ML BTL 1 DROP RIGHT EYE (17:34)
== END 2019-12-04 18:00 | disposition home or self-care (01) ==
LOC: ANHSURGERY 06:18 → ANH3MEDSUR 12:31
PROVIDERS: Nurse Practitioner; Physician Assistant Surgical; PCP Family Medicine; Visit Provider Orthopaedic Surgery
PROC: (CPT 27447; principal; 2019-12-03 07:30)
DX: M17.12 Unilateral primary osteoarthritis, left knee (principal); R06.09 Other forms of dyspnea; I11.0 Hypertensive heart disease with heart failure; I50.30 Unspecified diastolic (congestive) heart failure; I35.8 Other nonrheumatic aortic valve disorders; F41.9 Anxiety disorder, unspecified; E74.39 Other disorders of intestinal carbohydrate absorption; G47.33 Obstructive sleep apnea (adult) (pediatric); E78.5 Hyperlipidemia, unspecified; E03.9 Hypothyroidism, unspecified; K21.9 Gastro-esophageal reflux disease without esophagitis; Z86.73 Personal history of transient ischemic attack (TIA), and cerebral infarction without residual deficits; E66.9 Obesity, unspecified; Z68.34 Body mass index [BMI] 34.0-34.9, adult; Z87.891 Personal history of nicotine dependence; Z79.82 Long term (current) use of aspirin
CPT/HCPCS: 27447; 36415; 73560; 80048; 83735; 84443; 85025; 86850; 86900; 86901; 94660; 97110; 97116; 97161; 97165; 97530; 97535; A9270; C1713; C1776; J0171; J0690; J1100; J1170; J1741; J2270; J2405; J2704; J2710; J2795; J3010; J3370; J7030; J7120

== ENCOUNTER 2020-06-30 17:55 | Emergency (ER) | payer MEDICARE, OTHER, SELFPAY ==
--- NOTE | 2020-06-30 18:03 | PC.NURSE ---
Patient arrived after fall backwards possible LOC had large hematoma to back of head. Has area to left great toe with large amount of bleeding from nailbed. Ubnsure what she hit on. Son with her. decided to go to the ER and not being seen here. Avani spoke with [facility] Offered to see here and arrange transfer. patient insisted on going to the ER now
--- NOTE | 2020-06-30 18:06 | ED.GENADULT ---
HPI - General Adult General Stated complaint: toe injury Related Data Home Medications Medication Instructions Recorded Confirmed cholecalciferol (vitamin D3) 2,000 unit PO DAILY 11/12/19 12/03/19 coQ10 (ubiquinol) 200 mg PO DAILY 11/12/19 12/03/19 cyanocobalamin (vitamin B-12) 1,000 mcg PO DAILY 11/12/19 12/03/19 levothyroxine 125 mcg PO DAILY 11/12/19 12/03/19 multivitamin [Multiple Vitamins] 1 tablet PO DAILY 11/12/19 12/03/19 polyethylene glycol 3350 17 g PO DAILY 11/12/19 12/03/19 triamterene-hydrochlorothiazid 0.5 tablet PO QAM 11/12/19 12/03/19 [Maxzide-25mg] Allergies Allergy/AdvReac Type Severity Reaction Status Date / Time atorvastatin Allergy Unknown muscle Verified 12/03/19 06:42 aches fenofibrate Allergy Unknown muscle Verified 12/03/19 06:42 aches fluvastatin Allergy Unknown muscle Verified 12/03/19 06:42 aches niacin Allergy Unknown flushing Verified 12/03/19 06:42 simvastatin Allergy Unknown muscle Verified 12/03/19 06:42 aches Sulfa (Sulfonamide Allergy Unknown Skin Verified 12/03/19 06:42 Antibiotics) Reaction PMFSH Past Medical History Medical History (Updated 12/03/19 @ 18:37 by Maryan Lancaster NP) Anxiety Arthritis Chronic GERD Glucose intolerance Hyperlipidemia Hypertension Hypothyroidism Obesity JADIEL on CPAP 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 Thyroid disease Surgical History Surgical History (Updated 05/06/20 @ 11:00 by Matt Brown MD) History of surgery on wrist Left wrist ORIF History of tonsillectomy and adenoidectomy History of total knee arthroplasty Left knee History of tubal ligation Total knee replacement status December, left Family History Family History (Updated 12/03/19 @ 18:28 by Maryan Lancaster NP) Mother Family history of elevated blood lipids, Onset Age: 73 Family history of chronic obstructive pulmonary disease, Onset Age: 73 Grandparent Family history of malignant neoplasm Sibling Mesothelioma Social History Social History (Updated 12/03/19 @ 18:29 by Maryan Lancaster NP) Social History: Patient is . She lives home alone. She has 3 sons. She desires to be a full code. 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 Smoking packs per day: 1 Smoking cigarettes per day: 20.0 Smoking status: Never smoker Tobacco type: cigarettes Second hand tobacco smoke exposure: Yes Smoking end date: 10/03/99 Alcohol intake: unknown Substance use: never Substance use type: does not use Gender identity (if verbalized by the patient): Female Spiritual care concerns: No Agree to blood products: Yes Medical Decision Making MDM Narrative Medical decision making narrative: 79 year old female presents to [facility] stating that she fell at home after losing her balance striking her head on a dresser. Patient is unsure about LOC. Patient is A & O X 3. Patient also reports that she has bleeding to her left great toe but is unsure what she hit her toe on. Dressing applied to left great toe and bleeding controlled. Informed patient and son that we will evaluate patient here and then send her to ER for higher level of care and possible CT of head due to head injury and daily ASA use. Patient and son insist on going directly to ER for further evaluation and refuse ambulance transfer. Called [facility] and report given to [facility]. Discharge Plan Discharge Prescriptions: No Action triamterene-hydrochlorothiazid [Maxzide-25mg] 37.5-25 mg tablet 0.5 tablet PO QAM RF: 0 multivitamin [Multiple Vitamins] Tablet 1 tablet PO DAILY RF: 0 cyanocobalamin (vitamin B-12) 1,000 mcg Tablet 1,000 mcg PO DAILY RF: 0 levothyroxine 125 mcg Tablet 125 mcg PO DAILY RF: 0 polyethylene glycol 3350 17 gram/dose Powder 17 g PO DAILY RF: 0 coQ10 (ubiquinol) 200 mg Capsule 200 mg PO DAILY RF
== END 2020-06-30 18:03 | disposition left against medical advice (07) ==
PROVIDERS: Emergency Provider Nurse Practitioner Family; PCP Family Medicine
DX: Z53.21 Procedure and treatment not carried out due to patient leaving prior to being seen by health care provider (principal)
CPT/HCPCS: 99199

== ENCOUNTER 2020-06-30 18:16 | Emergency (ER) | payer MEDICARE, OTHER, SELFPAY ==
--- NOTE | ~2020-06-30 | CT_ITS ---
EXAMINATION: CT brain wo con DATE: 06/30/2020 19:31 INDICATION: Fall with head injury TECHNIQUE: Computed tomography (CT) of the head was performed without intravenous contrast. Sagittal and coronal reconstructions were performed. The mA was adjusted according to patient size. Iterative reconstruction technique was employed. The dose-length product was 605.33 mGy-cm. COMPARISON: head CT dated 03/29/2011 FINDINGS: High right parietal scalp hematoma. No fracture. No acute intracranial hemorrhage, acute infarction o r abnormal extra axial fluid collection. There is mild scattered white matter hypoattenuation consist ent with chronic small vessel ischemic disease. Ventricles are normal and symmetric. No mass/mass eff ect. Changes of bilateral intraocular lens replacement. Bilateral mastoid effusions. Paranasal sinuse s are clear. Hyperostosis frontalis. Intracranial calcified cerebral atherosclerosis is noted. IMPRESSION: 1. No fracture or acute intracranial process. 2. Nonspecific mild scattered white matter hypoattenuation consistent with chronic small vessel ische sunny disease. Reviewed, dictated and finalized at location A. IMPRESSION: 1. No fracture or acute intracranial process. 2. Nonspecific mild scattered white matter hypoattenuation consistent with lunchroom operator patricia small vessel ischemic disease.
--- NOTE | ~2020-06-30 | XR_ITS ---
EXAMINATION: XR toe 1st LT min 2V DATE: 06/30/2020 21:34 INDICATION: Fall with laceration to the left great toe TECHNIQUE: Dorsal plantar, lateral and 2 oblique views of the left great toe were obtained. COMPARISON: None FINDINGS: Oblique linear lucency projecting across the base of the left first distal phalanx consistent with no ndisplaced likely extra articular fracture. No change in an abnormal contour to medial side of the tu ft of the left first distal phalanx which could be related to prior trauma or osteotomy. Mild osteoar thritis at the first metatarsophalangeal and multiple interphalangeal joints. IMPRESSION: Nondisplaced extra-articular fracture at the base of the left first distal phalanx. Reviewed, dictated and finalized at location A. IMPRESSION: Nondisplaced extra-articular fracture at the base of the left first distal phal anx.
--- NOTE | 2020-06-30 18:38 | PC.NURSE ---
MAZIN CASTRO TO BE CONTACTED WITH UPDATES AT [phone].
[2020-06-30 19:02] VITALS: BP 143/73; PULSE 83; RESP 17; TEMP 36.8; O2SAT 97
--- NOTE | 2020-06-30 21:22 | ED.HEATRA ---
HPI - Head Injury General Chief complaint: Head Injury <Bradley Gilliam DO - Last Filed: 06/30/20 23:03> Stated complaint: head injury <Bradley Gilliam DO - Last Filed: 06/30/20 23:03> Time Seen by Provider: 06/30/20 21:02 <Bradley Gilliam DO - Last Filed: 06/30/20 23:03> Source: RN notes reviewed <Bradley Gilliam DO - Last Filed: 06/30/20 23:03> History of Present Illness HPI Narrative: Patient presents emergency department from home for head injury. Patient states that she was walking when she believes she stubbed her toe and then fell striking the right side of her head on furniture. She denies any loss of consciousness and reports mild swelling and pain to the right side of her head as well as pain to her left toe. Patient states she initially went to the urgent care was referred to the emergency department for further evaluation. She denies any loss of consciousness, vision changes neck pain chest pain shortness of breath or any other symptoms <Bradley Gilliam DO - Last Filed: 06/30/20 23:03> Related Data Home medications: Home Medications Medication Instructions Recorded Confirmed cholecalciferol (vitamin D3) 2,000 unit PO DAILY 11/12/19 12/03/19 coQ10 (ubiquinol) 200 mg PO DAILY 11/12/19 12/03/19 cyanocobalamin (vitamin B-12) 1,000 mcg PO DAILY 11/12/19 12/03/19 levothyroxine 125 mcg PO DAILY 11/12/19 12/03/19 multivitamin [Multiple Vitamins] 1 tablet PO DAILY 11/12/19 12/03/19 polyethylene glycol 3350 17 g PO DAILY 11/12/19 12/03/19 triamterene-hydrochlorothiazid 0.5 tablet PO QAM 11/12/19 12/03/19 [Maxzide-25mg] <Bradley Gilliam DO - Last Filed: 06/30/20 23:03> Allergies/Adverse reactions: Allergies Allergy/AdvReac Type Severity Reaction Status Date / Time atorvastatin Allergy Unknown muscle Verified 06/30/20 20:03 aches fenofibrate Allergy Unknown muscle Verified 06/30/20 20:03 aches fluvastatin Allergy Unknown muscle Verified 06/30/20 20:03 aches niacin Allergy Unknown flushing Verified 06/30/20 20:03 simvastatin Allergy Unknown muscle Verified 06/30/20 20:03 aches Sulfa (Sulfonamide Allergy Unknown Skin Verified 06/30/20 20:03 Antibiotics) Reaction <Bradley Gilliam DO - Last Filed: 06/30/20 23:03> Review of Systems Review of Systems: Narrative: Gen.: Denies fevers or chills Eyes: Denies eye pain or visual change ENT: Denies congestion Respiratory: Denies shortness of breath or cough CV: Denies chest pain or palpitations GI: Denies abdominal pain nausea, emesis or diarrhea Musculoskeletal: Denies back pain reports toe injury Neuro: Denies numbness, tingling, weakness or focal weakness Skin: See HPI Except as documented, all other systems reviewed and negative <Bradley Gilliam DO - Last Filed: 06/30/20 23:03> PMFSH Past Medical History Medical History: Medical History Anxiety Arthritis Chronic GERD Glucose intolerance Hyperlipidemia Hypertension Hypothyroidism Obesity JADIEL on CPAP 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 Thyroid disease <Bradley Gilliam DO - Last Filed: 06/30/20 23:03> Surgical History Surgical History: Surgical History (Updated 05/06/20 @ 11:00 by Matt Brown MD) History of surgery on wrist Left wrist ORIF History of tonsillectomy and adenoidectomy History of total knee arthroplasty Left knee History of tubal ligation Total knee replacement status December, left <Bradley Gilliam DO - Last Filed: 06/30/20 23:03> Family History Family History: Family History Mother Family history of elevated blood lipids, Onset Age: 73 Family history of chronic obstructive pulmonary disease, Onset Age: 73 Grandparent Family history of malignant neoplasm Sibling Mesothelioma <Ro
[2020-06-30] MEDS: LIDOCAINE HCL 1% LOCAL INJ 20 ML VIAL INFILTRATE (22:40)
[2020-06-30] MEDS: CEPHALEXIN 500 MG CAPSULE PO (22:45)
[2020-06-30 23:00] VITALS: BP 124/65; PULSE 67; RESP 18; TEMP 36.9; O2SAT 96
[2020-06-30] MEDS: TETANUS,DIPHTHERIA,AC PERTUSSIS ADULT (0.5 ML) BOOSTRIX IM (23:02)
== END 2020-06-30 23:20 | disposition home or self-care (01) ==
PROVIDERS: Emergency Provider Emergency Medicine; PCP Family Medicine
DX: S00.93XA Contusion of unspecified part of head, initial encounter (principal); S92.425A Nondisplaced fracture of distal phalanx of left great toe, initial encounter for closed fracture; S91.112A Laceration without foreign body of left great toe without damage to nail, initial encounter; M19.90 Unspecified osteoarthritis, unspecified site; K21.9 Gastro-esophageal reflux disease without esophagitis; E78.5 Hyperlipidemia, unspecified; I10 Essential (primary) hypertension; E03.9 Hypothyroidism, unspecified; G47.33 Obstructive sleep apnea (adult) (pediatric); E66.9 Obesity, unspecified; Z68.33 Body mass index [BMI] 33.0-33.9, adult; E07.9 Disorder of thyroid, unspecified; Z96.652 Presence of left artificial knee joint; Z23 Encounter for immunization; W01.190A Fall on same level from slipping, tripping and stumbling with subsequent striking against furniture, initial encounter
CPT/HCPCS: 12042; 70450; 73660; 90471; 90715; 99284; A9270

== ENCOUNTER 2023-12-16 10:52 | Outpatient (CLI) | payer MEDICARE, OTHER, SELFPAY | END 2023-12-16 10:53 | disposition home or self-care (01) | LOC: ANHAUDIO 10:52 | PROVIDERS: PCP Emergency Medicine; Visit Provider Otolaryngology | DX: H90.71 Mixed conductive and sensorineural hearing loss, unilateral, right ear, with unrestricted hearing on the contralateral side (principal); H60.90 Unspecified otitis externa, unspecified ear; J30.2 Other seasonal allergic rhinitis; H90.42 Sensorineural hearing loss, unilateral, left ear, with unrestricted hearing on the contralateral side; H90.11 Conductive hearing loss, unilateral, right ear, with unrestricted hearing on the contralateral side | CPT/HCPCS: 92557; 92567 ==

== ENCOUNTER 2025-01-02 15:48 | Outpatient (CLI) | payer MEDICARE, OTHER, SELFPAY ==
--- NOTE | ~2025-01-02 | XR_ITS ---
EXAMINATION: XR chest 2V 01/02/2025 16:10 INDICATION: Cough PROCEDURE: 2 view chest COMPARISON: 11/12/2019 FINDINGS: The lungs are clear. The cardiomediastinal silhouette is within normal limits. There are no pleural effusions. There is no pneumothorax suspected. Calcified granuloma left lower thorax. IMPRESSION: 1: NO ACUTE CARDIOPULMONARY DISEASE. Reviewed, dictated and finalized at location A.
== END 2025-01-02 15:49 | disposition home or self-care (01) ==
LOC: GOSHIMG 15:50
PROVIDERS: PCP Family Medicine; Visit Provider Family Medicine
DX: R05.9 Cough, unspecified (principal); R06.09 Other forms of dyspnea
CPT/HCPCS: 71046

== ENCOUNTER 2025-02-20 11:52 | Outpatient (CLI) | payer MEDICARE, OTHER, SELFPAY ==
--- OUTSIDE RECORDS SUMMARY | 2025-02-20 11:58 | XMS_ITS | Referral Summary ---
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
--- OUTSIDE RECORDS SUMMARY | 2025-02-20 11:58 | XMS_ITS | Clinical Summary ---
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 Gender Identity Not on file Sexual Orientation Not on file Obstetrics History Para Term AB IAB SAB Ectopic Multiple Livin g Live Births 3 3 3 Date Outcome GA Total Labor Labor/2nd/3rd Weight Sex Type Anes PTL Nicolle A1 A5 Name Clin Term Term Term Plan of Treatment Health Maintenance Due Date Last Done Comments Depression Screening 1938 Fall Risk Assessment 1938 DTaP/Tdap/Td Vaccine (1 - Tdap) 1949 Hepatitis B Screening 1956 Pneumococcal vaccine 65+ (1 of 1 - PCV) 1988 Zoster Vaccine (1 of 2) 1988 Well Visit 65+ 2003 Influenza Vaccine (#1) 2024 06/25/2019 Insurance MEDICARE [employer] [place] MEDICARE [employer] [place] MEDICARE [facility] [place] [id number] Care Teams Black Mill Operator Relationship Specialty Start Date End Date Carl Lai MD PCP - General Family Medicine 12/13/22
--- OUTSIDE RECORDS SUMMARY | 2025-02-20 11:58 | XMS_ITS | Data Portability ---
Author Organization [place] [facility] [employer], Main Office Address [address] [place] [address] Care Team Providers Care Breadman Name Role Phone CHRIS WINSLOW Primary Care Provider CHRIS WINSLOW Referring Provider [phone] VINNY ADAMSON Primary Care Provider VINNY ADAMSON Referring Provider [phone] Assessment Encounter Date Assessment Date Assessment LastModified by Organization Details LastModified Time 02/04/2023 02/04/2023 HPI: Patient returns. She is here for cortisone injection right knee. Last shot was October 27 of this year. She has moderately severe medial compartment osteoarthritis. She is getting most 3 months good relief from the injections and wishes to continue with these. Physical exam: 82-year-old female alert pleasant. She walks with a cane. Has a drzo-tz-qsxiwaxn effusion right knee. Range of motion is from 7-130 degrees. She has trace edema in both lower extremities. ChloraPrep was used on skin 20 mg Kenalog and 3 cc of 0.5% ropivacaine was injected into the right knee. Risk infection discussed. Impression: 82-year-old female who has moderately severe medial compartment osteoarthritis right knee. She continues to get excellent relief from injections. We will see her back in 3 months repeat injection. Not available 02/04/2023 12:25:25 05/13/2023 05/13/2023 HPI: Patient returns. She is here for cortisone injection into the right knee. Last shot was 3 months ago. At this point she is having only minimal symptoms in the knee. She does wish to have another injection today. She does not wish to discuss surgery. She feels at her age she does not want to go through that again as she did on the left. Physical exam: 82-year-old female alert pleasant. She walks with a cane. She has mild effusion in the right knee. Range of motion is from 5-135 degrees. Moderate tenderness over the medial joint line to palpation. No increased swelling in either lower extremity. ChloraPrep was used on skin 20 mg Kenalog and 3 cc of 0.5% ropivacaine was injected into the right knee. Impression: 82-year-old female who has severe medial compartment osteoarthritis of the right knee. Shots continue to work very well for her. I We will see her back in 3 months for repeat injection. Not available 05/13/2023 15:16:39 08/01/2023 08/01/2023 patient returns. She has severe mxub-oe-orft medial compartment osteoarthritis seen on x-ray from May 13, 2023. Cortisone shot at that time worked very well for her. She has not had much discomfort all in the last week her to and would like another cortisone shot of the right knee today. She takes Tylenol as needed. On exam today she is using a cane. She has a mild effusion right knee range of motion 12 100 . Impression: Patient is severe medial compartment osteoarthritis in the right knee. She feels quite content to continue with periodic cortisone shots. Risk of side effects including risk of infection discussed. After ChloraPrep prep, 20 mg of Kenalog and 4 cc of 0.5% ropivacaine were injected into the right knee without difficulty. I will see her back in 3 months to assess her progress. Not available 08/01/2023 15:22:55 10/31/2023 10/31/2023 patient returns requesting cortisone shot in her right knee again. She had a cortisone shot 3 months ago on August 01, 2023 and it was very helpful again. Only last couple weeks as she noted the twinges of pain returning. She does have halb-ym-suyu medial compartment osteoarthritis the right knee. Impression: Patient has severe osteoarthritis medial compartment right knee. She is getting excellent relief from the cortisone shots and she would like to continue with that regimen. I have discussed risk of complications including risk infection with her. After after Betadine and alcohol prep, 20 mg of Kenalog and 4 cc of 0.5% ropivacaine were injected into the right knee without difficulty. She can have a cortisone shot again in 3 months if he she would like. Not available 10/31/2023 15:19:32 Plan of Treatment Reminders Order Date Submit Date Provider Last Modified By Organization Details Last Modified Time Details Appointments None recorded. Lab None recorded. Referral None recorded. Procedures injection/a spiration joint/bursa (PROC) - in office procedure, administere d by provider 2023 024 [email or web address] In-Office Order, Internal Use Only DO Not Attach Compendium DO Not Attach Compendium, Do Not Delete/merge, [id number] 14:46:34 injection/a spiration joint/bursa (PROC) - in office procedure, administere d by provider 2022 023 In-Office Order, Internal Use Only DO Not Attach Compendium DO Not Attach Compendium, Do Not Delete/merge, [id number] 14:39:12 injection/a spiration joint/bursa (PROC) - in office procedure, administere d by provider 2022 023 In-Office Order, Internal Use Only DO Not Attach Compendium DO Not Attach Compendium, Do Not Delete/merge, [id number] 3 14:04:51 injection/a spiration joint/bursa (PROC) - in office procedure, administere d by provider 2022 023 In-Office Order, Internal Use Only DO Not Attach Compendium DO Not Attach Compendium, Do Not Delete/merge, [id number] 12:19:21 Surgeries None recorded. Imaging XR, knee 2022 023 [email or web address] [facility] [place], [facility], [place], [address], 3 15:19:01 Medication Orders Kenalog 10 mg/mL suspension for injection 2023 024 [email or web address] [id number], [address], [place], [place], [id number], 4 17:43:01 ropivacaine (PF) 5 mg/mL (0.5 %) injection solution 2023 024 [email or web address] [facility] #28850, [address], [place], [place], [id number], 4 17:43:01 Kenalog 10 mg/mL suspension for injection 2022 023 [email or web address] [facility] #78014, [address], [place], [place], [id number], 4 14:44:31 ropivacaine (PF) 5 mg/mL (0.5 %) injection solution 2022 023 [email or web address] [facility] #12456, [address], [place], [place], [id number], 4 14:44:48 Kenalog 10 mg/mL suspension for injection 2022 023 [facility], [address], [place], [place], [id number], 4 14:44:31 ropivacaine (PF) 5 mg/mL (0.5 %) injection solution 2022 023 [email or web address] [facility], [address], [place], [place], [id number], 4 14:44:48 Kenalog 10 mg/mL suspension for injection 2022 023 [address] [facility], [address], [place], [place], [phone], 4 14:44:31 ropivacaine (PF) 5 mg/mL (0.5 %) injection solution 2022 023 [email or web address] [facility] #24906, [address], [place], [place], [id number], 4 14:44:48 Patient TargetsNo targets recorded. Patient InstructionsNo instructions recorded. Reason for Referral None Reported. Results Created Date Observation Date Name Description Value Unit Range Abnormal Flag Note LastModifiedBy Organization Detail LastModifiedTime 05/13/20 23 XR, knee No observ ation record ed. [email or web address] [facility] [place] [address], [place], [address], 05/13/2023 15:14:36 Result Notes None recorded. Problems Name Problem SNOMED Code Status Onset Date Resolution Date Notes Provider Name and Address Organization Details Recorded Time Osteoarthr itis 014718082 Active 2021 Not Available [facility] 3 17:46:49 Osteoarthr itis of right knee joint 7636732635876 00 Active 2022 Jerilyn martins [place] [facility] 3 12:14:04 Problem Notes None recorded. Procedures Surgical History Date Name Laterality Status Provider Name and Address Organization Details Recorded Time Knee Replacement completed Not Available [facility] 12/01/2022 17:46:29 Tubal Ligation completed Not Available [facility] 12/01/2022 17:46:29 Imaging Results Imaging Date Name Status LastModified by Organiz ation Details LastModified Time 05/13/2023 XR, knee completed [email or web address] [facility] [place] [address], [place], [address], 05/13/2023 15:14:36 Procedure Notes None recorded. Medical Equipment None Reported. Allergies Allergen ID Allergen Name Allergen Category Reaction Reaction Severity Criticality Documentation Date Start Date Code Code System Note Provider Name and Address Organization Details Recorded Time 23670 Substance with sulfonami de structure and antibacte rial mechanism of action (substanc e) medicatio n Not available Not available Not available 12/01/2022 28513 8003 SNOMED Not Available [facility] 3 17:47:55 Medications Name Sig Start Date Stop Date Status Note LastModified by Organization Details LastModified Time Mapap Extra Strength 500 mg tablet TK 2 TS PO Q 6 H 12/29 completed Not Available Not Available Not Available levothyroxi ne 137 mcg tablet TK 1 T PO D active Not Available Not Available No t Available nitroglycer in 0.3 mg sublingual tablet DISSOLVE 1 TABLET UNDER THE TONGUE EVERY 5 MINUTES NEEDED FOR CHEST PAIN. DO NOT EXCEED 3 DOSES PER EPISODE active Not Available Not Available No t Available ofloxacin 0.3 % eye drops INSTILL 4 DROPS IN AFFECTED EAR(S) THREE TIMES DAILY active Not Available Not Available No t Available hydrocodone 5 mg-acetamin ophen 325 mg tablet 10/05 completed Not Available Not Available Not Available bupivacaine HCl 0.5 % (5 mg/mL) injection solution In office injection administe red by the provider 04/16 completed Not Available Not Available Not Available cyanocobala min (vit B-12) 1,000 mcg tablet Take by oral route. 2019 active Not Available Not Available Not Avai lable meclizine 12.5 mg tablet 10/05 completed Not Available Not Available Not Available tramadol 50 mg tablet 10/05 completed Not Available Not Available Not Available triamcinolo ne acetonide 0.1 % topical cream APPLY TOPICALLY TO THE AFFECTED AREA TWICE DAILY active Not Available Not Available No t Available amoxicillin 500 mg tablet TAKE 4 TABLETS BY MOUTH 1 HOUR BEFORE DENTAL PROCEDURE active Not Available Not Available No t Available alprazolam 0.5 mg tablet TAKE 1 TABLET BY MOUTH EVERY DAY AT BEDTIME NEEDED FOR SLEEP active Not Available Not Available No t Available Kenalog 10 mg/mL suspension for injection in office 2023 active [facility]: 0003- 0494- 20 Not Available Not Available Not Available cephalexin 500 mg capsule TK 1 C PO Q 6 H active Not Available Not Available No t Available paroxetine 20 mg tablet TAKE 1 TABLET BY MOUTH EVERY MORNING active Not Available Not Available No t Available erythromyci n 5 mg/gram (0.5 %) eye ointment 07/02 completed Not Available Not Available Not Available levothyroxi ne 125 mcg tablet TAKE 1 TABLET BY MOUTH DAILY active Not Available Not Available No t Available triamcinolo ne acetonide 55 mcg nasal spray aerosol USE 1 SPRAY IN EACH NOSTRIL DAILY active Not Available Not Available No t Available triamterene 37.5 mg-hydrochl orothiazide 25 mg tablet TAKE 1 TABLET BY MOUTH EVERY MORNING active Not Available Not Available No t Available omeprazole 20 mg capsule,del ayed release TAKE 1 CAPSULE BY MOUTH DAILY active Not Available Not Available No t Available aspirin 81 mg chewable tablet ADHESIVE BONDING MACHINE OPERATOR ONE T D AT 8 AM 08/25 completed Not Available Not Available Not Available mupirocin 2 % topical ointment Applied as directed in both nostrils twice daily for 5 days start on 11-28-19 active Not Available Not Available No t Available methylpredn isolone 4 mg tablets in a dose pack FOLLOW PACKAGE DIRECTION S 10/31 completed Not Available Not Available Not Available metronidazo le 0.75 % topical gel 10/05 completed Not Available Not Available Not Available amoxicillin 875 mg-potassiu m clavulanate 125 mg tablet TAKE 1 TABLET BY MOUTH TWICE DAILY active Not Available Not Available No t Available oxycodone 5 mg tablet TK 1 T PO Q 4 H 04/14 completed Not Available Not Available Not Available clindamycin 1 % lotion APPLY AA BID 10/05 completed Not Available Not Available Not Available Estrace 0.01% (0.1 mg/gram) vaginal cream 10/05 completed Not Available Not Available Not Available DOK Plus 8.6 mg-50 mg tablet TK 2 TS PO BID 12/29 completed Not Available Not Available Not Available rosuvastati n 10 mg tablet TAKE 1 TABLET BY MOUTH DAILY active Not Available Not Available No t Available omeprazole 04/14 completed Not Available Not Available Not Available biotin 2019 active Not Available Not Available Not Avai lable Aspir-81 2019 active Not Available Not Available Not Avai lable polyethylen e glycol 1000(bulk) 2019 active Not Available Not Available Not Avai lable ubidecareno ne-omega 3-vit E 2020 active Not Available Not Available Not Avai lable lidocaine (PF) 10 mg/mL (1 %) injection solution In office injection administe red by the provider 12/28 completed [facility]: 0409- 4276- [phone] Not Available Not Available Not Available lidocaine (PF) 5 mg/mL (0.5 %) injection solution In office injection administe red by the provider 10/31 completed Not Available Not Available Not Available ropivacaine (PF) 5 mg/mL (0.5 %) injection solution in office 2023 active [facility] [phone] -[phone]- 01 Not Available Not Available Not Available Eliquis 2.5 mg tablet TK 1 T PO Q 12 H 12/29 completed Not Available Not Available Not Available cholecalcif omkar (vit D3) 1,000 unit-vitami n K2 (MK4) 100 mcg tablet Take by oral route. 06/29 completed Not Available Not Available Not Available Vitals Date Recorded Body height Provider Name an d Address Organization Details Last Updated DateTime 10/27/2022 177.8 cm Not Available [facility] 17:46:39 Date Recorded Body height Provider Name an d Address Organization Details Last Updated DateTime 02/04/2023 177.8 cm Jerilyn [place] [employer] [facility] [employer] 02/04/2023 12:10:23 Date Recorded Body mass index (BMI) Body weight Provider Name and Address Organization Details Last Updated DateTime 02/04/2023 34.4 kg/m2 177213.17 g Laly Pedro [facility] [employer] [facility] [employer] 02/04/2023 12:17:54 Date Recorded Body height Provider Name an d Address Organization Details Last Updated DateTime 05/13/2023 177.8 cm Laly Pedro [employer] [facility] 05/13/2023 14:03:09 Date Recorded Body height Provider Name an d Address Organization Details Last Updated DateTime 08/01/2023 177.8 cm Laly Pedro [employer] [facility] 08/01/2023 14:37:20 Date Recorded Body height Provider Name an d Address Organization Details Last Updated DateTime 10/31/2023 177.8 cm Laly Pedro [employer] [facility] [employer] [facility] 10/31/2023 14:44:17 Social History Question Answer Notes LastModified by Organizat ion Details LastModified Time Tobacco Smoking Status Never Smoker Not Available [facility] 12/01/2022 17:46:27 What Was The Date Of Your Most Recent Tobacco Screening? 12/29/2020 [id number] Information not available 12/01/2022 Sex: Unknown Functional Status Question Answer Note LastModified by Organizat ion Details LastModified Time What is your level of alcohol consumption? Occasional [id number] Information not available 12/01/2022 Mental Status None recorded. Family History Nothing Reported. Medical History Condition Response ARTHRITIS Y USE OF BLOOD THINNERS Y Gynecological HistoryNo gynecological history recorded. Obstetrics History GPAL:G 0 P 0 0 0 0 Past Encounters Encounter ID Performer Location Encounter Start Date Encounter Closed Date Diagnosis/Indication Diagnosis SNOMED-CT Code Diagnosis ICD10 Code Diagnosis Note [id number] MD KELLEE [facility] [place] [address] [place] [address] 12/29/2020 00:00:00 12/29/2020 15:29:48 [id number] BRITT Boucher [facility] [place] [address] [place] [address] 03/30/2021 00:00:00 03/30/2021 14:38:46 [id number] Kenny Wilkes MD [facility] [place] [address] [place] [address] 06/29/2021 00:00:00 06/29/2021 14:19:56 [id number] Kenny Wilkes MD [facility] [place] [address] [place] [address] 09/28/2021 00:00:00 09/28/2021 14:25:27 [id number] Kenny Wilkes MD [facility] [place] [address] [place] [address] 12/28/2021 00:00:00 12/28/2021 14:17:14 [id number] Kenny Wilkes MD [facility] [place] [address] [place] [address] 04/16/2022 00:00:00 04/16/2022 15:46:47 [id number] Kenny Wilkes MD [facility] [place] [address] [place] [address] 07/23/2022 00:00:00 07/23/2022 14:14:47 [id number] Kenny Wilkes MD [facility] [place] [address] [place] [address] 10/27/2022 00:00:00 10/27/2022 14:20:58 [id number] Kenny [place]kes MD [facility] [place] [address] [place] [address] 02/04/2023 11:09:28 02/04/2023 12:26:28 Osteoarthritis of right knee joint 7698191600 18736 M17.11 [id number] Kenny Wilkes MD [facility] [place] [address] [place] [address] 05/13/2023 13:59:38 05/13/2023 15:19:01 Osteoarthritis of right knee joint 6287752226 44352 M17.11 [id number] Kenny Wilkes MD [facility] [place] [address] [place] [address] 08/01/2023 14:30:58 08/01/2023 15:40:55 Osteoarthritis of right knee joint 2101958145 15602 M17.11 [id number] Kenny Wilkes MD [facility] [place] [address] [place] [address] 10/31/2023 14:38:28 10/31/2023 15:52:18 Osteoarthritis of right knee joint 6822174625 73411 M17.11 Health Concerns Section Related Observation LastModified by Organization Detai ls LastModified Time None Recorded Concern Status LastModified by Organization Details LastModified Time None Recorded Advance Directives Directive None Recorded Payers Encounter Date Sequence Insurance Name Policy Number Policy Bailey Covered Member ID Bailey Member ID Guarantor Name 02/04/2023 1 [place] Temitope Pitts [id number] Temitope Pitts 02/04/2023 2 [employer] Temitope Cano Gisselle [id number] Temitope Cano Gisselle 05/13/2023 1 [place] Temitope Cano Gisselle [id number] Temitope Cano Gisselle 05/13/2023 2 [employer] [place] Temitope Cano Gisselle [id number] Temitope Cano Gisselle 08/01/2023 1 [place] Temitope Cano Gisselle [id number] Temitope Cano Gisselle 08/01/2023 2 [employer] [place] Temitope Cano Gisselle [id number] Temitope J Gisselle 10/31/2023 1 [place] Temitope Cano Gisselle [id number] Temitope Cano Gisselle 10/31/2023 2 [employer] [place] Temitope Cano Gisselle [id number] Temitope [place] [facility] Episode No OBEpisode recorded.
--- OUTSIDE RECORDS SUMMARY | 2025-02-20 11:58 | XMS_ITS | Continuity of Care Document ---
Author Organization [facility] Address [address] [facility] [address] [place] [address] Phone Care Team Providers Care Edge Grinder Name Role Phone Prosper Koehler Unavailable Unavailable Procedures Procedure Date Office/outpatient Visit, Est Eye Exam Established Pt Ophthalmoscopy, Subsequent Eye Exam & Treatment Ophthalmoscopy Post-op Follow-up Visit Refraction BF Polycarb Sphcyl Orchard To +/-4d .12-2d Progressive Lens, Polycarb Roll And/or Qatari Post-op Follow-up Visit Remove Cataract, Insert Lens PreOp Assessment Performed Limbal Relaxing Incision Eye Exam & Treatment Script Printed/Phoned Pt Requ Or Pharm N ot Availab IOLMaster-Professional Progressive Lens, Polycarb Anti-reflective Coating Miscellaneous Vision Service - Supplies Post-op Follow-up Visit Refraction Post-op Follow-up Visit Remove Cataract, Insert Lens PreOp Assessment Performed Office/outpatient Visit, Est Script Printed/Phoned Pt Requ Or Pharm N ot Availab IOLMaster Eye Exam Established Pt Refraction Progressive Lens Per Lens Office/outpatient Visit, Est Vision Svcs Frames Purchases Progressive Lens, Polycarb Tax - Medical Office/outpatient Visit, Est Refraction Office/outpatient Visit, Est Visual Functional Status Assessed Eye Exam & Treatment Refraction Advance Directives Directive Yes / No Effective Date File Name No Information Encounters Encounter Description Practice Location Reason(s) For Visit Diagnoses Date Provider Providers Copied on Encounter Office/outpa tient Visit, Est [facility], [address], [place], [place], [id number], tel:[phone] [facility] No Information 4-201 0 Rodo Cheng. [address] , [address], [place], [place], [facility], . tel:[phone] [facility], [address], [place], [place], [address], [place] tel:[phone] [facility] No Information 5-201 0 Priscilla Dee. [address] [place] [address], [facility], . tel:[phone] Referring Provider: Luiz Deng, [address] [place], [place], [facility]. tel:[phone] [facility], [address], [place], [place], [address], [place] tel:[phone] [facility] No Information 2-201 0 Priscilla Dee. [address] [place], [place], [facility], . tel:[phone] Referring Provider: Luiz Deng, [address] [place], [facility]. tel:[phone] [facility], [address], [place], [place], [address], [place] tel:[phone] [facility] No Information Oct-1 4-200 9 Doisy Edjanina. [address] , [address], [place], [place], [facility], [place]. tel:[phone] [facility], [address], [place], [place], [address], [place] tel:[phone] [facility] No Information Oct-1 4-200 9 [employer]. [address] [facility], [address], [place], [place], [address], [place]. tel:[phone] Referring Provider: Prosper Pham, [address], [place], [facility]. tel:[phone] [facility], [address], [place], [place], [address], [place] tel:[phone] [facility] No Information Sep-3 0-200 9 Doisy Edjanina. [address], [address], [place], [facility], [place]. tel:[phone] [facility], [address], [place], [place], [id number], [place] tel:[phone] [facility] No Information Sep-2 9-200 9 Doisy Edjanina. [address], [address], [place], [facility], [place]. tel:[phone] [facility], [address] [place] [address] [address], [place], [place], [address], [place] tel:[phone] [facility] No Information Sep-2 3-200 9 Doisy Edjanina. [address], [address], [place], [facility], [place]. tel:[phone] Referring Provider: Prosper Pham, [address], [place], [address]. tel:[phone] [facility], [address], [place], [place], [address], [place] tel:[phone] [facility] No Information 5-200 9 [employer]. [address] [facility], [address], [place], [place], [address], [place]. tel:[phone] Referring Provider: Prosper Pham, [address], [place], [address]. tel:[phone] [facility], [address], [place], [place], [address], [place] tel:[phone] [facility] No Information Dec-1 8-200 9 Rodo Cheng. [address] , [address], [place], [facility], [place]. tel:[phone] [facility], [address], [place], [place], [address], [place] tel:[phone] [facility] No Information Mar-0 4-200 9 Rodo Cheng. [address] , [address], [place], [address], [place]. tel:[phone] [facility], [address], [place], [place], [address], [place] tel:[phone] [facility] No Information Mar-0 3-200 9 Rodo Cheng. [address] , [address], [place], [address], [place]. tel:[phone] Office/outpa tient Visit, Est [facility], [address], [place], [place], [address], [place] tel:[phone] [facility] No Information 8-200 9 Rodo Cheng. [address] , [address], [place], [address], [place]. tel:[phone] Referring Provider: Prosper Pham, [address], [place], [address]. tel:[phone] [facility], [address], [place], [place], [address], [place] tel:[phone] [facility] No Information May-2 0-200 8 Rodo Cheng. [facility] [address] [place] , [address], [place], [address], [place]. tel:[phone] [facility], [address], [place], [place], [address], [place] tel:[phone] [facility] No Information Apr-0 2-200 8 [employer]. [address] [facility], [address], [place], [place], [address], . tel:[phone] Consulting Provider: Annika Cassidy, [address] [facility], [place], [address]. tel:[phone] Office/outpa [place]ient Visit, [facility] [address] [place] [address] [address], [place], [place], [address], [place] tel:[phone] [facility] No Information Jan-0 2-200 8 Kezia Kunal. [facility], [place], [address], [place]. tel:[phone] [facility], [address] [place] [address] [address], [place], [place], [address], [place] tel:[phone] [facility] No Information Fe-2 6-200 8 [employer]. [address] [facility], [address], [place], [place], [address], . tel:[phone] Referring Provider: Prosper Pham, [address] [place], [place] [address], [place], [address]. tel:[phone] coronado Provider: Annika Cassidy, [address] [facility], [place], [address]. tel:[phone] Office/outpa tient Visit, [facility], [address], [place], [place], [address], tel:[phone] [place] [address] No Information 8 Rodo Cheng. [facility] [address], [address], [place], [facility], [place]. tel:[phone] Referring Provider: Prosper Pham, [address] [place], [place] [address] [place] [address], [place], [facility]. tel:[phone] Office/outpa [place]ient Visit, [facility] [address] [place] [address] [address], [place], [place], [address], [place] tel:[phone] [facility] No Information 7 Rodo Cheng. [address] [place] [address] [address], [address], [place], [facility], [place]. tel:[phone] [facility], [address] [place] [address] [address], [place], [place], [address], [place] tel:[phone] [place] [address] No Information Rodo Cheng. [address] [place] [address] [address], [address], [place], [facility], [place]. tel:[phone] Family History Family Member Type Diagnosis Age At Onset No Information Payers Payer name Insurance type Covered green party ID Authoriza tion(s) [place] [id number] [place] [id number] Social History Type Description Quantity Date Captured Comments Sex Female Smoking Status No Information Chief Complaint And Reason For Visit No Information Reason For Referral Reason For Referral No Information History Of Present Illness Encounter Date Complaint History Of Prese nt Illness No Information Functional Status Date Functional Assessmen t No Information Instructions Date Instruction Additional Infor mation No Information Assessments Type Assessment Date No Information Patient Care Teams Name Effective Dates (start - stop) Status Members No Information
--- OUTSIDE RECORDS SUMMARY | 2025-02-20 11:58 | XMS_ITS | Clinical Summary ---
Author Organization [facility] Address [address] [place] [address] Phone Care Team Providers Care Disaster Director Name Role Phone Matt Brown MD Primary Care Provider [phone] Allergies Active Allergy Reactions Criticality Noted Date Comments Sulfa (Sulfonamide Antibiotics) Rash Low 10/04 Medications raloxifene (EVISTA) 60 mg Oral tablet Take by mouth. Active paroxetine HCl (PAXIL) 20 mg Oral tablet Take by mouth. Active levothyroxine (SYNTHROID) 100 mcg Oral tablet Take by mouth. Active PRAVASTATIN SODIUM (PRAVASTATIN PO) Take by mouth. 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 Gender Identity Not on file Sexual Orientation Not on file Last Filed Vital Signs Vital Sign Reading Time Taken Comments Blood Pressure 122/80 10/27/2009 10:55 AM GANG BORE OPERATOR Pulse - - Temperature - - Respiratory Rate - - Oxygen Saturation - - Inhaled Oxygen Concentration - - Weight 103 kg (227 lb) 10/27/2009 10:55 AM GANG BORE OPERATOR Height 177.8 cm (5' 10 ) 10/27/2009 10:55 AM GANG BORE OPERATOR Body Mass Index 32.57 10/27/2009 10:55 AM GANG BORE OPERATOR Plan of Treatment Health Maintenance Due Date Last Done Comments DTAP/TDAP/TD VACCINES (1 - Tdap) 1957 PNEUMOCOCCAL VACCINE 50+ YEARS (1 of 1 - PCV) 11/03/18 89 ZOSTER VACCINE (1 of 2) 1988 OSTEOPOROSIS SCREENING 2003 RSV VACCINE (60+ or ) (1 - 1-dose 75+ series) 2013 INFLUENZA VACCINE (#1) 2024 Insurance MEDICARE PART A AND B [employer] BLUE ACCESS/TRUE BLUE PPO Care Teams Disaster Director Relationship Specialty Start Date End Date Matt Brown MD [address] [place] [id number] PCP - General 10/27/09
--- NOTE | 2025-02-20 14:00 | NEURO_ITS ---
Impression: # Known diabetic complains of numbness/weakness and balance dysfunction. ? # Severe motor/sensory neuropathy. ? # Needle/EMG exam reveals neurogenic changes. ? # Clinical correlation recommended. Nerve Conduction Studies Anti Sensory Summary Table ?Stim Site NR Peak (ms) P-T Amp (?V) Site1 Site2 Delta-P (ms) Dist (cm) Jeramy (m/s) Left Sup Fibular Anti Sensory (Ant Lat Mall)??? NO RESPONSE 14 cm NR 14 cm Ant Lat Mall 16.0 Right Sup Fibular Anti Sensory (Ant Lat Mall)??? NO RESPONSE 14 cm NR 14 cm Ant Lat Mall 16.0 Left Sural Anti Sensory (Lat Mall)??? NO RESPONSE Calf NR Calf Lat Mall 16.0 Right Sural Anti Sensory (Lat Mall)??? NO RESPONSE Calf NR Calf Lat Mall 16.0 Motor Summary Table ?Stim Site NR Onset (ms) O-P Amp (mV) Site1 Site2 Delta-0 (ms) Dist (cm) Jeramy (m/s) Left Peroneal Motor (Vastus Med)??? NO RESPONSE Ankle NR Popit Ankle 0.0 Popit NR Right Peroneal Motor (Vastus Med)??? NO RESPONSE Ankle NR Popit Ankle 0.0 Popit NR Left Tibial Motor (Abd Muir Brev)??? NO RESPONSE Ankle NR Knee NR Right Tibial Motor (Abd Muir Brev)??? NO RESPONSE Ankle NR Knee NR F Wave Studies ?NR F-Lat (ms) L-R F-Lat (ms) Left Peroneal (Mrkrs) (EDB)??? NO RESPONSE NR Right Peroneal (Mrkrs) (EDB)??? NO RESPONSE NR Left Tibial (Mrkrs) (Abd Hallucis)??? NO RESPONSE NR Right Tibial (Mrkrs) (Abd Hallucis)??? NO RESPONSE NR EMG ?Side Muscle Nerve Root Ins Act Fibs Amp Dur Recrt Comment Right AntTibialis Dp Br Fibular L4-5 Nml Nml Nml >12ms +1 Right Gastroc Tibial S1-2 Nml Nml Nml >12ms +1 Right Fibularis Long Sup Br Fibular L5-S1 Nml Nml Nml >12ms +1 Right Flex Dig Long Tibial L5-S2 Nml Nml Nml >12ms +2 Right Ext Dig Brev Dp Br Fibular L5, S1 Nml Nml Nml >12ms +2 Right QuadratusFem QuadFemoris L4-5, S1 Nml Nml Nml >12ms +1 Left AntTibialis Dp Br Fibular L4-5 Nml Nml Nml >12ms +1 Left Gastroc Tibial S1-2 Nml Nml Nml >12ms +1 Left Fibularis Long Sup Br Fibular L5-S1 Nml Nml Nml >12ms +1 Left Flex Dig Long Tibial L5-S2 Nml Nml Nml >12ms +2 Left Ext Dig Brev Dp Br Fibular L5, S1 Nml Nml Nml >12ms +2 Left QuadratusFem QuadFemoris L4-5, S1 Nml Nml Nml >12ms +1 MTDD
--- NOTE | 2025-02-20 16:55 | WPDPFTINT ---
PFT Procedure Performed PFT Procedure Performed Spirometry with Pre/Post Bronchodilator Plethysmography (Lung Vol) Diffusing Cap (DLCO) Flow Vol Loop PFT Interpretation This is a pulmonary function test with pre and post-bronchodilator spirometry, plethysmography and diffusing capacity. The test was performed and results interpreted in accordance with the 2019 and 2005 ATS/ERS Task Force guidelines respectively using the Global Lung Function Initiative-2012 reference equations. Patient demonstrated good effort and cooperation. Reproducibility criteria were met. The quality of the pre bronchodilator spirometry maneuver was Grade A and post bronchodilator spirometry maneuver was Grade A. Findings: Spirometry: The contour the inspiratory and expiratory flow tracing are normal. The pre bronchodilator FVC is 2.72 L, 123% predicted. The pre bronchodilator FEV1 is 1.84 L, 111% predicted. The pre bronchodilator FEV1: FVC ratio 68%. The post bronchodilator FVC is 3.10 L, representing a 14% increase. The post bronchodilator FEV1 is 1.97 L, representing a 7% increase. The post bronchodilator FEV1: FVC ratio 64%. Plethysmography: The total lung capacity is 5.48 L, 116% predicted. The functional residual capacity is 3.13 L, 114% predicted. The residual volume is 2.55 L, 106% predicted. Diffusing capacity: The diffusing capacity unadjusted for hemoglobin and carboxyhemoglobin is 15.6, 87% predicted. The diffusing capacity adjusted for alveolar volume is 3.78, 92% predicted. Impression: The spirometry is normal without evidence of an obstructive abnormality. There is significant improvement after inhaling a single dose of albuterol. The lung volumes are normal. The diffusing capacity is normal. There are no prior studies for comparison
== END 2025-02-20 11:53 | disposition home or self-care (01) ==
PROVIDERS: PCP Family Medicine; Visit Provider Family Medicine
DX: G62.9 Polyneuropathy, unspecified (principal); R06.09 Other forms of dyspnea; E11.22 Type 2 diabetes mellitus with diabetic chronic kidney disease; N18.31 Chronic kidney disease, stage 3a
CPT/HCPCS: 94060; 94726; 94729; 95886; 95910

== ENCOUNTER 2025-02-28 15:07 | Outpatient (CLI) | payer MEDICARE, OTHER, SELFPAY ==
--- NOTE | ~2025-02-28 | XR_ITS ---
Lumbosacral Spine: AP, oblique, and lateral views Clinical History: Pain Findings: The normal lordotic curve is maintained. The vertebral bodies and posterior elements are i ntact. There is mild to moderate degenerative disc change at L4-L5 and L2-L3. There is severe facet a rthropathy from L3 through S1. The sacroiliac joints are normally outlined. Impression: Moderate degenerative spondylosis overall, as detailed above. Reviewed, dictated and finalized at location M. Impression: Moderate degenerative spondylosis overall, as detailed above.
== END 2025-02-28 15:08 | disposition home or self-care (01) ==
LOC: GOSHIMG 15:07
PROVIDERS: PCP Family Medicine; Visit Provider Family Medicine
DX: G62.9 Polyneuropathy, unspecified (principal); M47.896 Other spondylosis, lumbar region
CPT/HCPCS: 72110

== ENCOUNTER 2025-03-13 13:11 | Outpatient (CLI) | payer MEDICARE, OTHER, SELFPAY ==
--- NOTE | ~2025-03-13 | MR_ITS ---
MRI of the lumbar spine Clinical History: Back pain Technique: Axial T2-weighted images, and sagittal T1-weighted, T2-weighted, and T2 fat-sat images wer e acquired. Findings: There is no fracture or subluxation of the lumbar spine. Vertebral bodies maintain normal h eight and alignment. No bone marrow signal abnormality seen. At L1-L2, there is moderate degenerative disc narrowing. There is mild disc bulge and moderate facet arthropathy. No central canal stenosis. Neural foramina are preserved. At L2-L3, there is moderate to advanced degenerative disc narrowing. There is disc bulge and facet ar thropathy, with moderate central canal stenosis. There is moderate bilateral neural foraminal narrowi ng. At L3-L4, there is disc bulge and mild facet arthropathy. There is mild central canal stenosis. There is moderate bilateral neural foraminal narrowing, left worse than right. At L4-L5, there is disc bulge and advanced facet arthropathy. There is severe spinal canal stenosis. There is moderate bilateral neural foraminal narrowing, left worse than right. At L5-S1, there is disc bulge and severe facet arthropathy. Mild central canal stenosis. There is sev ere bilateral neural foraminal narrowing. Paravertebral soft tissues are unremarkable. Impression: Severe degenerative spondylosis throughout the lumbar spine, as detailed above. Reviewed, dictated and finalized at [facility]. Impression: Severe degenerative spondylosis throughout the lumbar spine, as detailed above.
== END 2025-03-13 13:12 | disposition home or self-care (01) ==
LOC: GOSHIMG 13:12
PROVIDERS: PCP Family Medicine; Visit Provider Family Medicine
DX: G62.9 Polyneuropathy, unspecified (principal); M47.817 Spondylosis without myelopathy or radiculopathy, lumbosacral region
CPT/HCPCS: 72148

== ENCOUNTER 2025-03-29 13:28 | Outpatient (CLI) | payer MEDICARE, OTHER, SELFPAY ==
--- NOTE | 2025-03-29 13:37 | ECHO_ITS ---
Patient Info Name: Temitope Pitts Age: 84 years : 1940 Gender: Female Ht: 70 in Wt: 240 lbs BSA: 2.36 m2 HR: 95 bpm BP: 123 / 85 mmHg Technical Quality: Poor Exam Date: 03/29/2025 1:46 PM Patient Status: O Admit Date: 03/29/2025 Exam Type: CA echo dop color flow w con Complete two-dimensional, color flow and Doppler transthoracic echocardiogram is performed with contrast to opacify the left ventricle and to improve the deliniation of the left ventricle endocardial borders. Line Servicer: Jenny Phillips Attending Provider: Ofelia Kraus MD Contrast/Agitated Saline Contrast/Ag. Saline: Definity Amount: 2.00 ml Administered By: Jenny Phillips Existing IV Access: No New IV Access: Left and Dorsum of Hand Site Condition: IV removed, Site dressing applied and No extravasation Reason for Poor Study: poor echocardiographic windows Summary 1. Left ventricular chamber dimension is normal. 2. Left ventricular systolic function is normal, estimated at 65-70. 3. The left ventricular diastolic function is grade I diastolic dysfunction. 4. Definity contrast administered improved wall motion interpretation. 5. E/e' 12 is mildly elevated. 6. There is mild aortic valve sclerosis. 7. There is trace tricuspid valve regurgitation. 8. No pulmonary hypertension, estimated pulmonary arterial systolic pressure is 19 mmHg. Left Ventricle E/e' 12 is mildly elevated. Left ventricular chamber dimension is normal. Left ventricular systolic function is normal, estimated at 65-70. The left ventricular diastolic function is grade I diastolic dysfunction. Definity contrast administered improved wall motion interpretation. Right Ventricle Right ventricular chamber dimension is normal. Right ventricular systolic function is normal. Left Atria Left atrial chamber dimension is normal. Right Atria Right atrial chamber dimension is normal. Aortic Valve The aortic valve is trileaflet. There is mild aortic valve sclerosis. There is no aortic valve stenosis. There is no aortic valve regurgitation. Pulmonic Valve There is no pulmonic regurgitation. Mitral Valve There is no mitral valve stenosis. There is no mitral valve regurgitation. Tricuspid Valve There is trace tricuspid valve regurgitation. No pulmonary hypertension, estimated pulmonary arterial systolic pressure is 19 mmHg. Pericardium/Pleural There is no pericardial effusion. Inferior Vena Cava Normal inferior vena cava with >50% collapse upon inspiration consistent with normal right atrial pressure, 5 mmHg. Aorta The aortic root size at the sinus of Valsalva is normal. Left Ventricular Outflow Tract Name Value Normal LVOT 2D LVOT Diameter 1.9 cm LVOT Doppler LVOT Peak Velocity 87 cm/s LVOT Peak Gradient 3 mmHg LVOT Mean Gradient 2 mmHg LVOT VTI 16 cm LVOT VTI/AV VTI Ratio 0.9 LVOT Stroke Volume 46 ml LVOT CO 4.0 l/min LVOT CI 1.7 l/min/m2 Pulmonic Valve Name Value Normal RVOT Doppler RVOT Peak Velocity 107 cm/s RVOT Peak Gradient 5 mmHg PV Doppler PV Peak Velocity 113 cm/s PV Peak Gradient 5 mmHg Mitral Valve Name Value Normal MV Diastolic Function MV E Peak Velocity 85 cm/s MV A Peak Velocity 120 cm/s MV E/A 0.7 MV Decel Time (PW) 123 ms Tricuspid Valve Name Value Normal TV Regurgitation Doppler TR Peak Velocity 185 cm/s TR Peak Gradient 14 mmHg Estimated PAP/RSVP RA Pressure 5 mmHg <=5 PA Systolic Pressure 19 mmHg <36 RV Systolic Pressure 19 mmHg <36 Aorta Name Value Normal Ascending Aorta Ao Root Diameter (MM) 3.2 cm Ao Root Diam Index (MM) 1.3 cm/m2 Aortic Valve Name Value Normal AV Doppler AV Peak Velocity 95 cm/s AV Peak Gradient 4 mmHg AV Mean Gradient 2 mmHg AV VTI 18 cm AV Area (Cont Eq VTI) 2.6 cm2 >=3.0 AV Area (Cont Eq Jeramy) 2.7 cm2 AV DI (Jeramy) 0.92 AV Regurgitation 2D LVOT Area 2.9 cm2 Ventricles Name Value Normal LV Dimensions 2D/MM IVS Diastolic Thickness (2D) 1.0 cm 0.6-1.0 IVS Diastole Thickness (MM) 1.1 cm 0.6-0.9 LVID Diastole (2D) 3.9 cm 3.8-5.2 LVID Diastole (MM) 5.5 cm 3.8-5.2 LVIW Diastolic Thickness (2D) 1.2 cm 0.6-0.9 LVIW Diastolic Thickness (MM) 0.9 cm 0.6-0.9 LVID Systole (2D) 2.4 cm 2.2-3.5 LVID Systole (MM) 3.3 cm 2.2-3.5 LVOT Diameter 1.9 cm LV Mass (2D Cubed) 141.40 g 67.00-162.00 LV Mass Index (2D Cubed) 60 g/m2 43-95 Relative Wall Thickness (2D) 0.63 <=0.42 LV Mass (MM Cubed) 206.56 g 67.00-162.00 LV Mass Index (MM Cubed) 88 g/m2 43-95 Relative Wall Thickness (MM) 0.31 LV Fractional Shortening/Ejection Fraction 2D/MM LV Fractional Shortening (2D) 38 % 27-45 LV Fractional Shortening (MM) 40 % 27-45 LV EF (MM Teichholz) 70 % LV EF (2D Teichholz) 69 % LV Diastolic Volume (4C MOD) 81 ml LV EF (4C MOD) 69 % LV Diastolic Volume (2C MOD) 65 ml LV EF (2C MOD) 65 % LV Diastolic Volume (BP MOD) 73 ml 46-106 LV Diastolic Volume Index (BP MOD) 31 ml/m2 29-61 LV Systolic Volume (BP MOD) 24 ml 14-42 LV Systolic Volume Index (BP MOD) 10 ml/m2 8-24 LV EF (BP MOD) 67 % 54-74 LV Diastolic Length (4C) 8.4 cm LV Systolic Length (4C) 6.8 cm LV Stroke Volume (4C MOD) 55 ml Atria Name Value Normal LA Dimensions LA Dimension (MM) 3.9 cm 2.7-3.8 LA Volume (4C A-L) 32 ml LA Volume (BP A-L) 36 ml RA Dimensions RA Systolic Major [place] Length (4C) 4.3 cm 2.2-2.8 RA Area (4C) 12.7 cm2 <=18.0 Report Signatures
[2025-03-29] MEDS: PERFLUTREN LIPID MICROSPHERES 1.5 ML VIAL DILUTED TO 10 ML TOTAL VOLUME IV PUSH (14:30)
--- NOTE | 2025-03-29 14:49 | IVDEFINITY ---
Prior to administration of IV Definity the patient was educated on the risks and benefits of the imaging enhancing agent including potential adverse side effects. The patient verbalized understanding. Allergies were verified. No exclusion criteria were identified and at least one of the following inclusion criteria were met: 1) physician request, 2) patient technically difficult to image (per the [place] [employer] guidelines of two or more segments not discernable within the apical view), or 3) questionable left ventricular function. ?
== END 2025-03-29 13:29 | disposition home or self-care (01) ==
LOC: ANHCARD 13:32
PROVIDERS: PCP Family Medicine; Visit Provider Family Medicine
DX: R06.09 Other forms of dyspnea (principal); I51.89 Other ill-defined heart diseases; I35.8 Other nonrheumatic aortic valve disorders; I36.1 Nonrheumatic tricuspid (valve) insufficiency
CPT/HCPCS: C8929; Q9957

== ENCOUNTER 2025-05-29 14:30 | Outpatient (RCR) | payer MEDICARE, OTHER, SELFPAY | END 2025-06-10 12:13 | disposition home or self-care (01) | LOC: ANHDMC 14:30 | PROVIDERS: PCP Family Medicine; Visit Provider Family Medicine | DX: E11.22 Type 2 diabetes mellitus with diabetic chronic kidney disease (principal); N18.31 Chronic kidney disease, stage 3a; G62.9 Polyneuropathy, unspecified; Z71.89 Other specified counseling | CPT/HCPCS: G0108; G0109 ==